=== PATIENT | female | born 1945 ===

== ENCOUNTER 2017-05-21 17:26 | Inpatient (IN) | payer MEDICARE, MEDICAID ==
[2017-05-22 13:53] VITALS: BMI 30.6
[2017-05-22] MEDS ORDERED: Albuterol HFA 90 mcg/actuation (8 g) IH PRN (17:29)
[2017-05-22] MEDS: Simethicone 80 mg Chewtab PO SCH (20:36)
[2017-05-22] MEDS: Divalproex 500 mg ER (ONCE DAILY formulation) PO SCH (20:44)
[2017-05-22] MEDS: Insulin Detemir 100 Units/ml Inj SC SCH (21:57)
[2017-05-22] MEDS: Insulin Lispro (humaLOG) 100 Units/ml Inj SC SCH (21:59)
[2017-05-23] MEDS: Simethicone 80 mg Chewtab PO SCH ×5 (00:55→21:53)
[2017-05-23] MEDS: Pantoprazole 40 mg EC Tab PO SCH (06:11)
[2017-05-23] MEDS: Insulin Lispro (humaLOG) 100 Units/ml Inj SC SCH ×4 (07:17→21:32)
[2017-05-23] MEDS: Divalproex 500 mg ER (ONCE DAILY formulation) PO SCH ×2 (08:36→21:30)
[2017-05-23] MEDS: Enoxaparin 40 mg Syringe SC SCH (08:39)
[2017-05-23 09:44] LABS: ALB/GLOB RATIO 1.3 (1.0-2.1); ALBUMIN 3.4 g/dL (3.5-5.0); ALT/SGPT 34 U/L (9-52); AST/SGOT 23 U/L (14-36); BLOOD UREA NITROGEN 19 mg/dl (7-17); CALCIUM 9.7 mg/dL (8.4-10.2); GFR AFRICAN-AMERICAN > 60; GFR NON-AFRICAN AMERICAN > 60
[2017-05-23 09:54] LABS: HEMOGLOBIN 12.4 g/dL (12.0-16.0); MEAN CELL VOLUME 88.6 fl (81.0-99.0); MEAN CORPUSCULAR HEMOGLOBIN 28.7 pg (27.0-31.0); MEAN CORPUSCULAR HGB CONC 32.4 g/dL (33.0-37.0); RBC 4.32 Mil/uL (3.80-5.20); RED CELL DISTRIBUTION WIDTH 13.3 % (11.5-14.5); WHITE BLOOD COUNT 3.2 K/uL (4.8-10.8)
[2017-05-23] MEDS: Multivitamin With Minerals Tab PO SCH (10:00)
--- NOTE | 2017-05-23 16:30 | CP.PCM.CON ---
History of Present Illness - History of Present Illness History of Present Illness: Dr Higuera PMR consultation on Estrellita Cordon, born 1945 who has been admitted to [facility] for acute inpatient rehabilitation following a right CVA with left hemiplegia. 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 Right hand dominant. Some left neglect. Review of Systems - Constitutional Constitutional: absent: Chills - EENT Ears: absent: Dizziness - Cardiovascular Cardiovascular: absent: Chest Pain - Respiratory Respiratory: absent: Cough - Gastrointestinal Gastrointestinal: Bloating, Constipation - Musculoskeletal Musculoskeletal: absent: Back Pain - Integumentary Integumentary: absent: Bleeding Lesions, Rash, Wounds - Neurological Neurological: absent: Abnormal Movements, Vertigo Past Patient History - Past Medical History & Family History Past Medical History?: Yes - Past Social History Smoking Status: Never Smoked Chewing Tobacco Use: No Alcohol: None Drugs: Denies Home Situation {Lives}: Other ([facility]) - CARDIAC Hx Cardiac Disorders: Yes Hx Hypercholesterolemia: Yes Hx Hypertension: Yes Hx Peripheral Vascular Disease: Yes - PULMONARY Hx Respiratory Disorders: Yes (SOB) Hx Pneumonia: Yes (3 YRS AGO) - NEUROLOGICAL Hx Neurological Disorder: Yes (PERIPHERAL NEUROPATHY) Hx Dizziness: Yes Other/Comment: UNSURE OF DIAGNOSIS/TREMORS - HEENT Hx HEENT Problems: No - RENAL Hx Chronic Kidney Disease: No - ENDOCRINE/METABOLIC Hx Endocrine Disorders: Yes Hx Diabetes Mellitus Type 1: Yes - HEMATOLOGICAL/ONCOLOGICAL Hx Blood Disorders: Yes Hx AIDS: No Hx Cancer: Yes (RT BREAST) Hx Human Immunodeficiency Virus (HIV): No - MUSCULOSKELETAL/RHEUMATOLOGICAL Hx Falls: Yes - GASTROINTESTINAL Hx Gastrointestinal Disorders: Yes Hx Gastritis: Yes - GENITOURINARY/GYNECOLOGICAL Hx Genitourinary Disorders: Yes Hx Reproductive Disorders: Yes (FIBROID) - PSYCHIATRIC Hx Substance Use: No - SURGICAL HISTORY Hx Surgeries: Yes Hx Angiogram: Yes Hx Breast Biopsy: Yes Hx Hysterectomy: Yes Hx Mastectomy: Yes (RT. BREAST CANCER) - ANESTHESIA Hx Anesthesia: Yes Hx Anesthesia Reactions: No Meds Allergies/Adverse Reactions: Allergies Allergy/AdvReac Type Severity Reaction Status Date / Time No Known Allergies Allergy Verified 09/06/15 10:53 - Medications Medications: Current Medications Acetaminophen (Tylenol 325mg Tab) 650 mg PO Q6 PRN PRN Reason: PAIN 4-10 Albuterol (Ventolin Hfa 90 Mcg/Actuation (8 G)) 1 puff IH Q4 PRN PRN Reason: Wheezing Amlodipine Besylate (Norvasc) 5 mg PO DAILY [facility] Last Admin: 05/23/17 08:39 Dose: 5 mg Aspirin (Aspirin Chewable) 81 mg PO DAILY [facility] Last Admin: 05/23/17 08:38 Dose: 81 mg Atorvastatin Calcium (Lipitor) 80 mg PO HS [facility] Last Admin: 05/22/17 21:53 Dose: 80 mg Clonidine HCl (Catapres) 0.2 mg PO DAILY [facility] Last Admin: 05/23/17 08:40 Dose: 0.2 mg Divalproex Sodium (Depakote Er(Once Daily)) 500 mg PO Q12 [facility] Last Admin: 05/23/17 08:36 Dose: 500 mg Donepezil HCl (Aricept) 5 mg PO HS [facility] Last Admin: 05/22/17 21:55 Dose: 5 mg Enoxaparin Sodium (Lovenox) 40 mg SC DAILY [facility] PRN Reason: Protocol Last Admin: 05/23/17 08:39 Dose: 40 mg Fluticasone Propionate (Flonase) 1 spr PRITESH DAILY [facility] Last Admin: 05/23/17 08:37 Dose: 1 spr Furosemide (Lasix) 20 mg PO DAILY [facility] Last Admin: 05/23/17 08:38 Dose: 20 mg Gabapentin (Neurontin) 200 mg PO Q6 [facility] Last Admin: 05/23/17 12:23 Dose: 200 mg Hydralazine HCl (Apresoline) 50 mg PO Q8 [facility] Last Admin: 05/23/17 13:12 Dose: 50 mg Insulin Detemir (Levemir) 10 units SC HS [facility] Last Admin: 05/22/17 21:57 Dose: 10 units Insulin Human Lispro (Humalog) 0 units SC [facility] PRN Reason: Protocol Last Admin: 05/23/17 12:24 Dose: 2 unit Losartan Potassium (Cozaar) 100 mg PO DAILY [facility] Last Admin: 05/23/17 08:39 Dose: 100 mg Metformin HCl (Glucophage) 1,000 mg PO BID [facility] Last Admin: 05/23/17 08:40 Dose: 1,000 mg Multivitamins/Minerals (Therapeutic-M Tab) 1 tab PO DAILY [facility] Last Admin: 05/23/17 10:00 Dose: 1 tab Pantoprazole Sodium (Protonix Ec Tab) 40 mg PO 0630 [facility] Last Admin: 05/23/17 06:11 Dose: 40 mg Senna/Docusate Sodium (Senokot S 50 Mg-8.6 Mg) 1 tab PO BID [facility] Simethicone (Mylicon Chew Tab) 80 mg PO HS [facility] Last Admin: 05/23/17 00:55 Dose: 80 mg Simethicone (Mylicon Chew Tab) 80 mg PO PC [facility] Last Admin: 05/23/17 12:23 Dose: 80 mg Sitagliptin Phosphate (Januvia) 50 mg PO BID [facility] Last Admin: 05/23/17 08:39 Dose: 50 mg Topiramate (Topamax) 50 mg PO Q12 [facility] Last Admin: 05/23/17 08:38 Dose: 50 mg Physical Exam - Constitutional Appears: Well, Non-toxic, No Acute Distress - Head Exam Head Exam: ATRAUMATIC, NORMAL INSPECTION, NORMOCEPHALIC - Eye Exam Eye Exam: EOMI - ENT Exam ENT Exam: Mucous Membranes Moist - Respiratory Exam Respiratory Exam: NORMAL BREATHING PATTERN. absent: Chest Wall Tenderness - Cardiovascular Exam Cardiovascular Exam: REGULAR RHYTHM - GI/Abdominal Exam GI & Abdominal Exam: Distended. absent: Firm - Extremities Exam Extremities exam: Negative for: calf tenderness, pedal edema - Neurological Exam Neurological exam: Alert, CN II-XII Intact, Oriented x3 - Psychiatric Exam Psychiatric exam: Normal Affect, Normal Mood - Skin Skin Exam: Warm Results - Vital Signs Recent Vital Signs: Last Vital Signs Temp 97.2 F L 05/23/17 08:06 Pulse 67 05/23/17 15:00 Resp 18 05/23/17 08:06 BP 146/56 L 05/23/17 15:00 Pulse Ox 100 05/23/17 08:06 - Labs Result Diagrams: 05/23/17 06:35 05/23/17 06:35 Labs: Laboratory Results - last 24 hr 05/22/17 05/23/17 05/23/17 21:11 06:15 06:35 WBC 3.2 L RBC 4.32 Hgb 12.4 Hct 38.3 MCV 88.6 MCH 28.7 MCHC 32.4 L RDW 13.3 Plt Count 196 Sodium Potassium Chloride Carbon Dioxide Anion Gap BUN Creatinine Est GFR ( Amer) Est GFR (Non-Af Amer) POC Glucose (mg/dL) 189 H 157 H Random Glucose Calcium Total Bilirubin AST ALT Alkaline Phosphatase Total Protein Albumin Globulin Albumin/Globulin Ratio 05/23/17 05/23/17 05/23/17 06:35 11:17 16:15 WBC RBC Hgb Hct MCV MCH MCHC RDW Plt Count Sodium 148 Potassium 4.7 Chloride 106 Carbon Dioxide 29 Anion Gap 18 BUN 19 H Creatinine 0.9 Est GFR ( Amer) > 60 Est GFR (Non-Af Amer) > 60 POC Glucose (mg/dL) 219 H 96 Random Glucose 145 H Calcium 9.7 Total Bilirubin 0.3 AST 23 ALT 34 Alkaline Phosphatase 48 Total Protein 6.1 L Albumin 3.4 L Globulin 2.7 Albumin/Globulin Ratio 1.3 Assessment & Plan - Assessment and Plan (Free Text) Assessment: PT/OT to continue to help increase functional independence Team conference for d/c planning Pain: controlled Vascular: no evidence of DVT GI: + constipation will monitor some left neglect. Left UE 4/5 left LE 3-/5 Patient is an excellent acute rehabilitation candidate and will have focused speech, PT, OT and recreational therapy to help facilitate a safe and appropriate d/c plan
--- NOTE | 2017-05-23 16:43 | PCM.OPOC ---
Physiatry Overall Plan of Care - Overall Plan of Care Estimated Length of Stay in Weeks: 3 Rehab Impairment: Mobility, Gait, Speech, Balance, Coordination Etiologic Diagnosis: Cerebrovascular Accident Rehab/Medical Prognosis: Fair - Anticipated Interventions Physical Therapy:: Yes Occupational Therapy:: Yes Speech Therapy:: Yes Recreational Therapy:: Yes - Therapy Goals Bed Mobility: Supervision Ambulation: Supervision Functional Positional Changes:: Supervision - Discharge Plan Discharge Destination: Home
[2017-05-23] MEDS: Docusate-Senna 50 mg-8.6 mg Tab PO SCH (16:49)
[2017-05-23] MEDS: Insulin Detemir 100 Units/ml Inj SC SCH (21:33)
[2017-05-24] MEDS: Pantoprazole 40 mg EC Tab PO SCH (06:10)
[2017-05-24 06:28] LABS: EOS # 0.1 K/uL (0.0-0.7); EOS % 2.4 % (0.0-4.0); HEMOGLOBIN 12.8 g/dL (12.0-16.0); LYMPH # 1.6 K/uL (1.0-4.3); LYMPH % 38.9 % (20.0-40.0); MEAN CELL VOLUME 88.5 fl (81.0-99.0); MEAN CORPUSCULAR HEMOGLOBIN 28.3 pg (27.0-31.0); MEAN PLATELET VOLUME 9.7 fl (7.2-11.7); MONO # 0.4 K/uL (0.0-0.8); MONO % 10.8 % (0.0-10.0); NEUT # 1.9 K/uL (1.8-7.0); NEUT % 46.9 % (50.0-75.0); NRBC % 0.1 % (0.0-0.0); RBC 4.5 Mil/uL (3.80-5.20); RED CELL DISTRIBUTION WIDTH 13.2 % (11.5-14.5)
[2017-05-24 06:39] LABS: ALB/GLOB RATIO 1.3 (1.0-2.1); ALBUMIN 3.6 g/dL (3.5-5.0); ALT/SGPT 36 U/L (9-52); AST/SGOT 24 U/L (14-36); BLOOD UREA NITROGEN 27 mg/dl (7-17); CALCIUM 9.6 mg/dL (8.4-10.2); GFR AFRICAN-AMERICAN > 60; GFR NON-AFRICAN AMERICAN > 60; HDL CHOLESTEROL 37 MG/DL (30-70)
[2017-05-24 06:49] LABS: LDL CHOLESTEROL 72 mg/dL (0-129)
--- NOTE | 2017-05-24 07:20 | HP ---
HISTORY OF PRESENT ILLNESS: This patient is a 71-year-old female with history of hypertension, diabetes, status post right mastectomy for CA of the breast, was admitted to [facility] because of the patient had developed acute stroke, so the patient will now go to [facility] for rehabilitation. In fact, the patient was complaining of drooling of the left side of the face and also dizziness and altered mental status. On evaluation, we have found the patient has acute CVA with weakness of right side of the face and drooling and also the patient complained of some weakness to the right side of the body. ALLERGY: THE PATIENT HAS NO KNOWN ALLERGY. PAST MEDICAL HISTORY: As I mentioned, history of hypertension, diabetes, and breast CA with mastectomy and also the patient has a history of altered mental status and possible seizure. FAMILY HISTORY: No hereditary disease. 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 REVIEW OF SYSTEMS: RESPIRATORY: No shortness of breath. CARDIOVASCULAR: No chest pain and no palpitation. GI: The patient complaining of constipation. : No dysuria. NEUROLOGIC: The patient feels weak numbness to the right side of the face. PSYCHIATRIC: The patient is somewhat forgetful at time and disoriented at time. PHYSICAL EXAMINATION: GENERAL: The patient is alert and awake and oriented today. VITAL SIGNS: Blood pressure 146/86, pulse 67, and respirations 18. HEENT: Head is normocephalic. There is some weakness of the right side of the face and drooling to the right side of the lip. NECK: Supple. No JVD. CHEST: Revealed a mass at the left breast there is a right mastectomy. Mass is 4 cm in diameter and attached to the muscle. LUNGS: Clear. HEART: Regular rate and rhythm, positive murmur. ABDOMEN: Soft, obese. Positive bowel sounds, nontender. EXTREMITIES: There is no edema. NEUROLOGIC: The patient is now alert and awake and oriented. There is some weakness of the right side of the face with some deviation of the lip to the left slightly. Upper extremity strength is 5/5 and the right lower extremity is 3/4. LABORATORY DATA: Lab test that was done has shown that today sodium of 148, potassium of 4.7, chloride of 106, bicarb of 29, BUN of 19, creatinine of 0.9, glucose of 145, AST of 23, ALT of 34, alkaline phosphatase of 48, total protein of 6.4, and albumin of 3.4. WBC is 3.2, hemoglobin is 12.4, hematocrit is 38.3, and platelets 196. IMPRESSION: 1. Cerebrovascular accident with right-sided weakness, hypertension, diabetes, possible seizure, and dementia. The patient will have consult with Dr. Higuera, Physiatry. 2. Breast mass. Rule out cancer of the breast. PLAN: We are going to get ultrasound of breast and will proceed with biopsy of the breast mass. The case was discussed with the family. Mehrdad Aleman MD
[2017-05-24] MEDS: Insulin Lispro (humaLOG) 100 Units/ml Inj SC SCH ×4 (07:27→21:46)
[2017-05-24] MEDS: Multivitamin With Minerals Tab PO SCH (09:09)
[2017-05-24] MEDS: Divalproex 500 mg ER (ONCE DAILY formulation) PO SCH ×2 (09:11→21:46)
[2017-05-24] MEDS: Docusate-Senna 50 mg-8.6 mg Tab PO SCH ×2 (09:11→17:15)
[2017-05-24] MEDS: Enoxaparin 40 mg Syringe SC SCH (09:13)
[2017-05-24] MEDS: Simethicone 80 mg Chewtab PO SCH ×4 (09:13→21:50)
--- NOTE | 2017-05-24 17:15 | US ---
PROCEDURE: MAMMO DIAGNOSTIC LT INCLUD CAD HISTORY: Palpable abnormality left breast. Past history of right breast cancer status post mastectomy performed in 2002 at an outside institution. TECHNIQUE: Digital mammography was performed in medial oblique and craniocaudal projections with. Detection also utilized in the evaluation. Technologist was unable to capture the left breast in medial lateral projection as the patient is wheelchair-bound at this time. Further, ultrasonography of all 4 quadrants of the left breast was performed including at the area of the palpable abnormality this in this patient as well as retroareolar axillary tail segments. COMPARISON: None available. FINDINGS: MAMMOGRAM: Fibroglandular parenchyma appears somewhat heterogeneously dense. The posterior portions of the left breast as well as axillary tail are poorly captured this examination due to limiting of technique by patient being wheelchair bound. There is a small metallic density seen overlying the medial left breast as a component of a bandage. No definitive dominant masses appreciated or microcalcification cluster. There is no architectural distortion or change appreciate the left breast. The skin, nipple and visualized axilla appear unremarkable. Patient's pain signature is reportedly at the 12-1 o'clock radius 8-10 cm from the nipple with no mammographic pathology grossly evident here. No significant lymphadenopathy. ULTRASOUND: No suspicious masses appreciated throughout all radiuses including retroareolar axillary tail components. IMPRESSION: Suboptimal mammography as the patient is unable to stand for standard mammographic images. There is no radiographic or sonographic evidence suggest malignancy in the images submitted as discussed above. Further clinical correlation is recommended. BIRADS 1 Negative Recommendation: Continue annual screening mammography, as per ACR guidelines. [facility] has passed a law, effective June 08, 2013. Please be advised that we are required by this law to put this notification in all mammography result reports. This [place] Breast Density Law requires all patients and healthcare providers, regardless of breast density, to receive the information typed below: Your mammogram may show dense breast tissue as determined by the Breast Imaging Reporting and Data System established by the [employer]. Dense breast tissue is very common and is not abnormal. However, in some cases, dense breast tissue can make it harder to find cancer on a mammogram and may also be associated with a risk factor for breast cancer. Discuss this and other risks for breast cancer that pertain to your personal medical history. A report of your results was sent to your health care provider. You may also find more information about breast density at the website of the [employer], www.acr.org.
[2017-05-24] MEDS: Insulin Detemir 100 Units/ml Inj SC SCH (21:49)
[2017-05-25] MEDS: Pantoprazole 40 mg EC Tab PO SCH (06:02)
[2017-05-25] MEDS: Levothyroxine 88 MCG TAB PO SCH (06:02)
[2017-05-25] MEDS: Insulin Lispro (humaLOG) 100 Units/ml Inj SC SCH ×4 (06:58→22:07)
[2017-05-25] MEDS: Simethicone 80 mg Chewtab PO SCH ×4 (08:51→22:49)
[2017-05-25] MEDS: Divalproex 500 mg ER (ONCE DAILY formulation) PO SCH ×2 (08:52→22:49)
[2017-05-25] MEDS: Multivitamin With Minerals Tab PO SCH (08:55)
[2017-05-25] MEDS: Enoxaparin 40 mg Syringe SC SCH (08:56)
[2017-05-25] MEDS: Docusate-Senna 50 mg-8.6 mg Tab PO SCH ×2 (08:57→17:18)
--- NOTE | 2017-05-25 13:14 | PSY.TMCNF ---
Nursing - Vital Signs Vital Signs (Last 8 hours): Vital Signs 05/25/17 05/25/17 05/25/17 06:02 08:44 08:54 Temperature 98.1 F Pulse Rate 62 61 Respiratory 19 Rate Blood Pressure 166/68 H 147/54 L 147/54 L O2 Sat by Pulse 97 Oximetry 05/25/17 05/25/17 08:57 09:00 Temperature 98.1 F Pulse Rate 61 Respiratory 19 Rate Blood Pressure 147/54 L 147/54 L O2 Sat by Pulse Oximetry Pain: 0 - Precautions: Precautions: Fall Prevention, Cardiac/Pulmonary - Medications/Other Issues Comment: Mammogram with US of left breast done 05/25/17, negative. (+) New Loop reocorder, insertion site covered with dry dressing d/i. - Consults Comment: Dr. Higuera - Skin Incision Site: Right upper chest Dressing Status: Clean, Dry, Intact Incision: Healing Well, No Odor Incision Line Treatment: loop recorder insertion site d/i - Toileting Toileting: Dependent - Bladder Management Bladder Pattern: Normal Voiding Method: Toilet, Bedside Commode, Bedpan Bladder Management: Maximal Assistance Frequency of Accidents: x2 - Bowel Management Bowel Pattern: Normal Bowel Management: Maximal Assistance Frequency of Accidents: x1 - Transfers Transfers: Dependent - ADL's ADL's: Dependent - Patient/Family Teaching Comments: Care post CVA and safety precutions - Goals/Time Frame Comments: Per multidiciplinary care plan and goals - Provider Provider: Radha MENDOZAN RN CRRN Physical Therapy - Transfers Sit to Stand: Verbal Cues, Maximum Assistance - Ambulation Level of Assistance: Maximum Assistance Distance (ft.): 10 - Stair Negotiation Stairs: Level of Assistance: Not Tested - Standing Balance Static Stand: Moderate Assistance Dynamic Stand: Maximal Assistance - Pain Pain (assessed during therapy session): 0 - Insight/Carryover Insight/Carryover: Fair - Patient/Family Education Comment: Patient has been educated regarding plan of care while in rehabilitation. She has also been educated regarding safety, use of call bowling. - Assessment/Plan Assessment: 71 yo female admitted to [facility] acute rehab unit s/p R CVA. Pt presents w/ L knee pain, restlessness, L inattention, L sided weakness, and impaired ROM, balance, sensation, activity tolerance, safety awareness and fxnl mob. Skilled PT recommended to address deficits. - Goals Timeframe: 8 days Goals: Functional Transfers (to/from wheelchair, bed, toilet, and shower) to Rick. Upperbody Dressing with Rick. Lowerbody Dressing with Rick. Self- feeding with Supervision. Grooming with Supervision. Bathing with Min/ModA. Improve safety awareness and body awareness - Provider Therapist: Bev House PT, DPT License Number: [id number] Occupational Therapy - Arousal/Attention/Orientation Patient Orientation: Person, Place - ADL/IADL Self Feeding: Contact Guard Grooming: Contact Guard Bathing-Upper Extremity: Moderate Assistance Bathing-Lower Extremity: Moderate Assistance Dressing-Upper Extremity: Moderate Assistance Dressing-Lower Extremity: Moderate Assistance Comment: Patient is noted to have Left inattention due to which she required max VCs for sequencing and safety. Patient is also noted to show decreased safety awareness and impulsivity at this time. - Sitting Balance Static Sitting: Supervision Dynamic Sitting: Requires supervision, Contact Guard Assist - Transfers Wheelchair to Bed Transfers: Minimal Assistance, Moderate Assistance Toilet Transfers: Moderate Assistance Tub Transfers: Not Applicable Comment: Tub transfer was not performed during today's evaluation. - Wheelchair Management Level of Assistance: Moderate Assistance, Maximum Assistance - Upper Extremity Status Right Upper Extremity Comment: ROM: WFLs. Strength: 4/5 Left Upper Extremity Comment: ROM: WFL. Strength: 3+/5. Moderate to maximum Left side and body inattention for which VCs are required with all tasks at this time. - Pain Pain (assessed during therapy session): 0 - Insight/Carryover Insight/Carryover: Fair - Patient/Family Education Comment: Patient has been educated regarding plan of care while in rehabilitation. She has also been educated regarding safety, use of call bowling. - Assessment/Plan Assessment: 71 yo female admitted to [facility] acute rehab unit s/p R CVA. Pt presents w/ L knee pain, restlessness, L inattention, L sided weakness, and impaired ROM, balance, sensation, activity tolerance, safety awareness and fxnl mob. Skilled PT recommended to address deficits. - Goals Timeframe: 8 days Goals: Functional Transfers (to/from wheelchair, bed, toilet, and shower) to Rick. Upperbody Dressing with Rick. Lowerbody Dressing with Rick. Self- feeding with Supervision. Grooming with Supervision. Bathing with Min/ModA. Improve safety awareness and body awareness - Provider Therapist: Emmett Cleary OTR/Saul License Number: [id number] Speech Therapy - Consult Information Patient on Program: Yes Medical Diagnosis: CVA Treatment Diagnosis: mild suspected pharyngeal dysphagia. moderate cognitive- linguistic deficits in STM and thought organization - Assessment Memory Impairment: Moderate Dysphagia/Swallowing Impairment: Mild - Plan Assessment: 71 yo female admitted to [facility] acute rehab unit s/p R CVA. Pt presents w/ L knee pain, restlessness, L inattention, L sided weakness, and impaired ROM, balance, sensation, activity tolerance, safety awareness and fxnl mob. Skilled PT recommended to address deficits. - Provider Therapist: Bridget Burnette License Number: [id number] Recreational Therapy - Assessment Assessment/Plan: 71 yo female admitted to [facility] acute rehab unit s/p R CVA. Pt presents w/ L knee pain, restlessness, L inattention, L sided weakness, and impaired ROM, balance, sensation, activity tolerance, safety awareness and fxnl mob. Skilled PT recommended to address deficits. Nutrition - Current Diet Current Diet/ Supplement/ Feedings: Moderate consistent CHO 2 gram Na low fat/ low cholesterol - Appetite Percent Meal Consumed: 75-100% - Comments Comments: Care post CVA and safety precutions - Assessment/Goals/Time Frame Assessment/Goals/Time Frame: Mammogram with US of left breast done 05/25/17, negative. (+) New Loop reocorder, insertion site covered with dry dressing d/i. - Provider Provider: Sheree Tellez RD Rehabilitation Plan - Discharge Plan Estimated Date of Discharge: 06/10/17 Discharge to: Subacute
--- NOTE | 2017-05-25 14:05 | CP.PCM.PN ---
Subjective - Date & Time of Evaluation Date of Evaluation: 05/25/17 Time of Evaluation: 14:04 - Subjective Subjective: Patient seen with the aid of an farm labor contractor, which did not help much she is very indifferent with all aspects of her care denies pain, but is weak in the leg no sob/fever continue current care Objective - Vital Signs/Intake and Output Vital Signs (last 24 hours): Temp Pulse Resp BP Pulse Ox 98.1 F 62 19 125/57 L 97 05/25/17 09:00 05/25/17 13:29 05/25/17 09:00 05/25/17 13:29 05/25/17 08:44 - Medications Medications: Current Medications Acetaminophen (Tylenol 325mg Tab) 650 mg PO Q6 PRN PRN Reason: PAIN 4-10 Albuterol (Ventolin Hfa 90 Mcg/Actuation (8 G)) 1 puff IH Q4 PRN PRN Reason: Wheezing Amlodipine Besylate (Norvasc) 5 mg PO DAILY [facility] Last Admin: 05/25/17 08:54 Dose: 5 mg Aspirin (Aspirin Chewable) 81 mg PO DAILY [facility] Last Admin: 05/25/17 08:55 Dose: 81 mg Atorvastatin Calcium (Lipitor) 80 mg PO HS [facility] Last Admin: 05/24/17 21:49 Dose: 80 mg Clonidine HCl (Catapres) 0.2 mg PO HS [facility] Divalproex Sodium (Depakote Er(Once Daily)) 500 mg PO Q12 [facility] Last Admin: 05/25/17 08:52 Dose: 500 mg Donepezil HCl (Aricept) 5 mg PO HS [facility] Last Admin: 05/24/17 21:49 Dose: 5 mg Enoxaparin Sodium (Lovenox) 40 mg SC DAILY [facility] PRN Reason: Protocol Last Admin: 05/25/17 08:56 Dose: 40 mg Fluticasone Propionate (Flonase) 1 spr PRITESH DAILY [facility] Last Admin: 05/25/17 08:58 Dose: 1 spr Furosemide (Lasix) 20 mg PO DAILY [facility] Last Admin: 05/25/17 08:57 Dose: 20 mg Gabapentin (Neurontin) 200 mg PO Q6 [facility] Last Admin: 05/25/17 12:16 Dose: 200 mg Hydralazine HCl (Apresoline) 50 mg PO Q8 [facility] Last Admin: 05/25/17 13:29 Dose: 50 mg Insulin Detemir (Levemir) 10 units SC [facility] Last Admin: 05/24/17 21:49 Dose: 10 units Insulin Human Lispro (Humalog) 0 units SC [facility] PRN Reason: Protocol Last Admin: 05/25/17 12:15 Dose: 2 unit Levothyroxine Sodium (Synthroid) 88 mcg PO DAILY@0630 [facility] Last Admin: 05/25/17 06:02 Dose: 88 mcg Losartan Potassium (Cozaar) 100 mg PO DAILY [facility] Last Admin: 05/25/17 08:54 Dose: 100 mg Metformin HCl (Glucophage) 1,000 mg PO BID [facility] Last Admin: 05/25/17 08:53 Dose: 1,000 mg Modafinil (Provigil) 100 mg PO DAILY [facility] Multivitamins/Minerals (Therapeutic-M Tab) 1 tab PO DAILY [facility] Last Admin: 05/25/17 08:55 Dose: 1 tab Pantoprazole Sodium (Protonix Ec Tab) 40 mg PO 0630 [facility] Last Admin: 05/25/17 06:02 Dose: 40 mg Senna/Docusate Sodium (Senokot S 50 Mg-8.6 Mg) 1 tab PO BID [facility] Last Admin: 05/25/17 08:57 Dose: 1 tab Simethicone (Mylicon Chew Tab) 80 mg PO HS [facility] Last Admin: 05/24/17 21:50 Dose: 80 mg Simethicone (Mylicon Chew Tab) 80 mg PO PC [facility] Last Admin: 05/25/17 12:17 Dose: 80 mg Sitagliptin Phosphate (Januvia) 50 mg PO BID [facility] Last Admin: 05/25/17 08:56 Dose: 50 mg Topiramate (Topamax) 50 mg PO Q12 [facility] Last Admin: 05/25/17 08:55 Dose: 50 mg - Labs Labs: 05/24/17 05:30 05/24/17 05:30
[2017-05-25] MEDS: Insulin Detemir 100 Units/ml Inj SC SCH (22:07)
[2017-05-26] MEDS: Levothyroxine 88 MCG TAB PO SCH (05:37)
[2017-05-26] MEDS: Pantoprazole 40 mg EC Tab PO SCH (05:37)
[2017-05-26] MEDS: Insulin Lispro (humaLOG) 100 Units/ml Inj SC SCH ×4 (06:33→22:00)
--- NOTE | 2017-05-26 08:33 | PN ---
DATE: SUBJECTIVE: The patient was seen and examined this morning. The patient is alert and awake, but worsening of weakness of the lower extremities. Denies any chest pain, shortness of breath or palpitation. PHYSICAL EXAMINATION: VITAL SIGNS: Blood pressure of 142/63, pulse rate 60, respirations 18, and temperature 98.4. HEENT: The face has had some drooling on the right side of the face that is subsiding. NECK: Supple. No JVD. LUNGS: Clear. HEART: Regular rate and rhythm and positive murmur. ABDOMEN: Soft and nontender. No palpable mass. EXTREMITIES: There is no edema. NEUROLOGIC: The patient had a mild unsteady gait with tendency to fall and there is a slight weakness in the right hand. Blanks at So today, patient has physical therapy started and the patient was somewhat unsteady and difficult to follow direction, but the physical therapy , who was done and we appreciate it and agree the patient. ADDENDUM: The patient to be a breast mass and mammogram of the left breast was done since the patient has right mastectomy, but there is no radiographic or sonographic evidence suggesting malignancy in the . This suspicious mass appreciated throughout component. Also, the patient had mammogram, which showed the metallic density seen overlying the medial left breast, but there is no evidence of mass to the breast. PLAN: We are going to continue the physical therapy and occupational therapy. Mehrdad Aleman MD
[2017-05-26] MEDS: Multivitamin With Minerals Tab PO SCH (09:23)
[2017-05-26] MEDS: Divalproex 500 mg ER (ONCE DAILY formulation) PO SCH ×2 (09:23→21:40)
[2017-05-26] MEDS: Simethicone 80 mg Chewtab PO SCH ×4 (09:23→21:42)
[2017-05-26] MEDS: Enoxaparin 40 mg Syringe SC SCH (09:25)
[2017-05-26] MEDS: Docusate-Senna 50 mg-8.6 mg Tab PO SCH ×2 (09:39→17:03)
[2017-05-26] MEDS: Insulin Detemir 100 Units/ml Inj SC SCH (22:20)
[2017-05-27] MEDS: Pantoprazole 40 mg EC Tab PO SCH (06:27)
[2017-05-27] MEDS: Levothyroxine 88 MCG TAB PO SCH (06:27)
[2017-05-27] MEDS: Insulin Lispro (humaLOG) 100 Units/ml Inj SC SCH ×4 (07:30→21:39)
[2017-05-27 07:31] LABS: BLOOD UREA NITROGEN 18 mg/dl (7-17); CALCIUM 9.9 mg/dL (8.4-10.2); GFR AFRICAN-AMERICAN > 60; GFR NON-AFRICAN AMERICAN > 60
[2017-05-27 07:37] LABS: MEAN CELL VOLUME 88.3 fl (81.0-99.0); MEAN CORPUSCULAR HEMOGLOBIN 28.6 pg (27.0-31.0); MEAN CORPUSCULAR HGB CONC 32.4 g/dL (33.0-37.0); RBC 4.54 Mil/uL (3.80-5.20); RED CELL DISTRIBUTION WIDTH 13.2 % (11.5-14.5)
[2017-05-27] MEDS: Enoxaparin 40 mg Syringe SC SCH (08:15)
[2017-05-27] MEDS: Multivitamin With Minerals Tab PO SCH (08:16)
[2017-05-27] MEDS: Divalproex 500 mg ER (ONCE DAILY formulation) PO SCH ×2 (08:17→21:33)
[2017-05-27] MEDS: Docusate-Senna 50 mg-8.6 mg Tab PO SCH ×2 (08:17→17:04)
[2017-05-27] MEDS: Simethicone 80 mg Chewtab PO SCH ×4 (08:21→21:34)
--- NOTE | 2017-05-27 08:59 | PN ---
DATE: SUBJECTIVE: This patient is at acute rehab at [facility], [place]. Today, the patient was seen and evaluated. The patient was much more alert today and following command, and feels happy about the treatment and attention she has on the floor and admitted having ____ to physical therapy yesterday and today. The patient denies any chest pain. No palpitation. No headache. PHYSICAL EXAMINATION: VITAL SIGNS: The patient has blood pressure of 126/98, at 1443 hours the blood pressure was 164/65, pulse 73. NECK: Supple. No JVD. FACE: There is a slightly drooling to the right side of the face. LUNGS: Clear. HEART: Regular rate and rhythm. ABDOMEN: Soft and nontender. No palpable mass. EXTREMITIES: There is no edema. NEUROLOGIC: There is weakness in the right lower extremity, still there is a slightly drooling to the right side of the face. The road advisor of the hands 5/5 on the left side and 4/5 on the right. PLAN: Continue physical therapy. The case was discussed and reviewed with the piano case maker on the floor and the plan is to continue acute physical therapy and occupational therapy, and also patient may continue on subacute after acute physical therapy. Mehrdad Aleman MD
[2017-05-27] MEDS: Insulin Detemir 100 Units/ml Inj SC SCH (22:21)
[2017-05-28] MEDS: Levothyroxine 88 MCG TAB PO SCH (06:05)
[2017-05-28] MEDS: Pantoprazole 40 mg EC Tab PO SCH (06:05)
[2017-05-28] MEDS: Insulin Lispro (humaLOG) 100 Units/ml Inj SC SCH ×4 (06:36→21:52)
--- NOTE | 2017-05-28 07:34 | PN ---
DATE: SUBJECTIVE: Today, the patient was seen early this morning on the chair, and the patient denies any joint pain and denies any shortness of breath. The patient is happy with the and therapies in the rehab; however the patient admits having some difficulty in standing. PHYSICAL EXAMINATION: VITAL SIGNS: The patient has blood pressure 144/69, pulse rate 60, respirations 19, temperature 97.4. HEENT: Head, the patient has slight drooling of the face that is resolving progressively. NECK: Supple. LUNGS: Clear. CHEST: He has right mastectomy. The left breast has no palpable mass at this point but the patient has a loop recorder in the sternum. ABDOMEN: Soft. Nontender. No palpable mass. Positive bowel sound. EXTREMITIES: There is no edema. NEUROLOGIC: There is an unsteady gait with difficulty of standing. LABORATORY DATA: Labs today showed WBC 4, hemoglobin 13, hematocrit 40.1, and platelets 194. Chemistry showed that the sodium is 149, potassium 4.3, chloride 105, bicarb is 30, BUN is 18, creatinine 0.9, and glucose 114. PLAN: So, the plan is to continue physical therapy and continue occupational therapy. Continue current medications. Mehrdad Aleman MD
[2017-05-28] MEDS: Divalproex 500 mg ER (ONCE DAILY formulation) PO SCH ×2 (08:25→21:40)
[2017-05-28] MEDS: Enoxaparin 40 mg Syringe SC SCH (08:27)
[2017-05-28] MEDS: Simethicone 80 mg Chewtab PO SCH ×4 (08:28→21:51)
[2017-05-28] MEDS: Docusate-Senna 50 mg-8.6 mg Tab PO SCH ×2 (08:30→16:20)
[2017-05-28] MEDS: Multivitamin With Minerals Tab PO SCH (08:30)
--- NOTE | 2017-05-28 17:07 | CP.PCM.PN ---
Subjective - Date & Time of Evaluation Date of Evaluation: 05/28/17 Time of Evaluation: 17:07 - Subjective Subjective: patient seen after therapy participatory today ambulated 60' in therapy no pain continue current care Objective - Vital Signs/Intake and Output Vital Signs (last 24 hours): Temp Pulse Resp BP Pulse Ox 97.3 F L 64 18 173/51 H 100 05/28/17 07:35 05/28/17 13:15 05/28/17 07:35 05/28/17 13:15 05/28/17 07:35 - Medications Medications: Current Medications Acetaminophen (Tylenol 325mg Tab) 650 mg PO Q6 PRN PRN Reason: PAIN 4-10 Albuterol (Ventolin Hfa 90 Mcg/Actuation (8 G)) 1 puff IH Q4 PRN PRN Reason: Wheezing Amlodipine Besylate (Norvasc) 5 mg PO DAILY [facility] Last Admin: 05/28/17 08:28 Dose: 5 mg Aspirin (Aspirin Chewable) 81 mg PO DAILY [facility] Last Admin: 05/28/17 08:21 Dose: 81 mg Atorvastatin Calcium (Lipitor) 80 mg PO HS [facility] Last Admin: 05/27/17 21:33 Dose: 80 mg Clonidine HCl (Catapres) 0.2 mg PO HS [facility] Last Admin: 05/27/17 21:34 Dose: 0.2 mg Divalproex Sodium (Depakote Er(Once Daily)) 500 mg PO Q12 [facility] Last Admin: 05/28/17 08:25 Dose: 500 mg Donepezil HCl (Aricept) 5 mg PO HS [facility] Last Admin: 05/27/17 21:33 Dose: 5 mg Enoxaparin Sodium (Lovenox) 40 mg SC DAILY [facility] PRN Reason: Protocol Fluticasone Propionate (Flonase) 1 spr PRITESH DAILY [facility] Last Admin: 05/28/17 08:26 Dose: 1 spr Furosemide (Lasix) 20 mg PO DAILY [facility] Last Admin: 05/28/17 08:27 Dose: 20 mg Gabapentin (Neurontin) 200 mg PO Q6 [facility] Last Admin: 05/28/17 17:00 Dose: 200 mg Hydralazine HCl (Apresoline) 50 mg PO Q8 [facility] Last Admin: 05/28/17 13:15 Dose: 50 mg Insulin Detemir (Levemir) 10 units SC HS [facility] Last Admin: 05/27/17 22:21 Dose: 10 units Insulin Human Lispro (Humalog) 0 units SC [facility] PRN Reason: Protocol Last Admin: 05/28/17 16:19 Dose: Not Given Levothyroxine Sodium (Synthroid) 88 mcg PO DAILY@0630 [facility] Last Admin: 05/28/17 06:05 Dose: 88 mcg Losartan Potassium (Cozaar) 100 mg PO DAILY [facility] Last Admin: 05/28/17 08:24 Dose: Not Given Metformin HCl (Glucophage) 1,000 mg PO BID [facility] Last Admin: 05/28/17 16:18 Dose: 1,000 mg Modafinil (Provigil) 100 mg PO DAILY [facility] Last Admin: 05/28/17 08:30 Dose: 100 mg Multivitamins/Minerals (Therapeutic-M Tab) 1 tab PO DAILY [facility] Last Admin: 05/28/17 08:30 Dose: 1 tab Pantoprazole Sodium (Protonix Ec Tab) 40 mg PO 0630 [facility] Last Admin: 05/28/17 06:05 Dose: 40 mg Senna/Docusate Sodium (Senokot S 50 Mg-8.6 Mg) 1 tab PO BID [facility] Last Admin: 05/28/17 16:20 Dose: Not Given Simethicone (Mylicon Chew Tab) 80 mg PO HS [facility] Last Admin: 05/27/17 21:34 Dose: 80 mg Simethicone (Mylicon Chew Tab) 80 mg PO PC [facility] Last Admin: 05/28/17 17:01 Dose: 80 mg Sitagliptin Phosphate (Januvia) 50 mg PO BID [facility] Last Admin: 05/28/17 16:18 Dose: 50 mg Topiramate (Topamax) 50 mg PO Q12 [facility] Last Admin: 05/28/17 08:31 Dose: 50 mg - Labs Labs: 05/27/17 06:05 05/27/17 06:05
[2017-05-28] MEDS: Insulin Detemir 100 Units/ml Inj SC SCH (22:48)
[2017-05-29] MEDS: Levothyroxine 88 MCG TAB PO SCH (06:09)
[2017-05-29] MEDS: Pantoprazole 40 mg EC Tab PO SCH (06:09)
[2017-05-29] MEDS: Insulin Lispro (humaLOG) 100 Units/ml Inj SC SCH ×4 (06:58→21:33)
[2017-05-29] MEDS: Enoxaparin 40 mg Syringe SC SCH (09:01)
[2017-05-29] MEDS: Simethicone 80 mg Chewtab PO SCH ×4 (09:06→21:25)
[2017-05-29] MEDS: Multivitamin With Minerals Tab PO SCH (09:07)
[2017-05-29] MEDS: Docusate-Senna 50 mg-8.6 mg Tab PO SCH ×2 (09:07→16:52)
[2017-05-29] MEDS: Divalproex 500 mg ER (ONCE DAILY formulation) PO SCH ×2 (09:11→21:34)
[2017-05-29] MEDS: Insulin Detemir 100 Units/ml Inj SC SCH (21:26)
[2017-05-30] MEDS: Levothyroxine 88 MCG TAB PO SCH (06:25)
[2017-05-30] MEDS: Pantoprazole 40 mg EC Tab PO SCH (06:25)
[2017-05-30] MEDS: Insulin Lispro (humaLOG) 100 Units/ml Inj SC SCH ×4 (06:30→21:42)
[2017-05-30 08:21] LABS: HEMOGLOBIN 12.4 g/dL (12.0-16.0); MEAN CELL VOLUME 87.1 fl (81.0-99.0); MEAN CORPUSCULAR HEMOGLOBIN 28.8 pg (27.0-31.0); MEAN CORPUSCULAR HGB CONC 33.1 g/dL (33.0-37.0); RBC 4.31 Mil/uL (3.80-5.20); RED CELL DISTRIBUTION WIDTH 13.1 % (11.5-14.5); WHITE BLOOD COUNT 3.5 K/uL (4.8-10.8)
[2017-05-30 08:33] LABS: BLOOD UREA NITROGEN 16 mg/dl (7-17); CALCIUM 9.6 mg/dL (8.4-10.2); GFR AFRICAN-AMERICAN > 60; GFR NON-AFRICAN AMERICAN > 60
[2017-05-30] MEDS: Enoxaparin 40 mg Syringe SC SCH (08:44)
[2017-05-30] MEDS: Divalproex 500 mg ER (ONCE DAILY formulation) PO SCH ×2 (08:44→20:34)
[2017-05-30] MEDS: Simethicone 80 mg Chewtab PO SCH ×4 (08:44→21:38)
[2017-05-30] MEDS: Multivitamin With Minerals Tab PO SCH (08:45)
[2017-05-30] MEDS: Docusate-Senna 50 mg-8.6 mg Tab PO SCH ×2 (08:51→17:15)
[2017-05-30] MEDS: Insulin Detemir 100 Units/ml Inj SC SCH (21:37)
[2017-05-31] MEDS: Levothyroxine 88 MCG TAB PO SCH (05:37)
[2017-05-31] MEDS: Pantoprazole 40 mg EC Tab PO SCH (05:37)
[2017-05-31] MEDS: Insulin Lispro (humaLOG) 100 Units/ml Inj SC SCH ×4 (06:35→23:24)
[2017-05-31 07:36] LABS: ALB/GLOB RATIO 1.2 (1.0-2.1); ALBUMIN 3.2 g/dL (3.5-5.0); ALT/SGPT 28 U/L (9-52); AST/SGOT 25 U/L (14-36); BLOOD UREA NITROGEN 16 mg/dl (7-17); CALCIUM 9.2 mg/dL (8.4-10.2); GFR AFRICAN-AMERICAN > 60; GFR NON-AFRICAN AMERICAN > 60
[2017-05-31 07:54] LABS: EOS # 0.1 K/uL (0.0-0.7); EOS % 3.1 % (0.0-4.0); HEMOGLOBIN 11.8 g/dL (12.0-16.0); LYMPH # 1.5 K/uL (1.0-4.3); LYMPH % 39.1 % (20.0-40.0); MEAN CELL VOLUME 89.1 fl (81.0-99.0); MEAN CORPUSCULAR HEMOGLOBIN 28.2 pg (27.0-31.0); MEAN CORPUSCULAR HGB CONC 31.6 g/dL (33.0-37.0); MEAN PLATELET VOLUME 9.9 fl (7.2-11.7); MONO # 0.4 K/uL (0.0-0.8); MONO % 11.2 % (0.0-10.0); NEUT # 1.8 K/uL (1.8-7.0); NEUT % 45.6 % (50.0-75.0); RBC 4.19 Mil/uL (3.80-5.20); RED CELL DISTRIBUTION WIDTH 13.3 % (11.5-14.5); WHITE BLOOD COUNT 3.9 K/uL (4.8-10.8)
[2017-05-31] MEDS: Divalproex 500 mg ER (ONCE DAILY formulation) PO SCH ×2 (08:48→20:42)
[2017-05-31] MEDS: Enoxaparin 40 mg Syringe SC SCH (08:48)
[2017-05-31] MEDS: Simethicone 80 mg Chewtab PO SCH ×4 (08:51→21:20)
[2017-05-31] MEDS: Docusate-Senna 50 mg-8.6 mg Tab PO SCH ×2 (08:53→16:51)
[2017-05-31] MEDS: Multivitamin With Minerals Tab PO SCH (08:54)
--- NOTE | 2017-05-31 18:27 | CP.PCM.PN ---
Subjective - Date & Time of Evaluation Date of Evaluation: 05/31/17 Time of Evaluation: 18:26 - Subjective Subjective: Patient seen in room denies pain feels stronger, but still limited ambulating with min/mod A continue current care team conf tomorrow Objective - Vital Signs/Intake and Output Vital Signs (last 24 hours): Temp Pulse Resp BP Pulse Ox 97.5 F L 67 18 151/69 H 98 05/30/17 20:00 05/31/17 13:06 05/31/17 09:38 05/31/17 13:06 05/31/17 09:38 - Medications Medications: Current Medications Acetaminophen (Tylenol 325mg Tab) 650 mg PO Q6 PRN PRN Reason: PAIN 4-10 Albuterol (Ventolin Hfa 90 Mcg/Actuation (8 G)) 1 puff IH Q4 PRN PRN Reason: Wheezing Amlodipine Besylate (Norvasc) 5 mg PO DAILY [facility] Last Admin: 05/31/17 08:55 Dose: 5 mg Aspirin (Aspirin Chewable) 81 mg PO DAILY [facility] Last Admin: 05/31/17 08:52 Dose: 81 mg Atorvastatin Calcium (Lipitor) 80 mg PO HS [facility] Last Admin: 05/30/17 21:37 Dose: 80 mg Clonidine HCl (Catapres) 0.2 mg PO HS [facility] Last Admin: 05/30/17 21:38 Dose: 0.2 mg Divalproex Sodium (Depakote Er(Once Daily)) 500 mg PO Q12 [facility] Last Admin: 05/31/17 08:48 Dose: 500 mg Donepezil HCl (Aricept) 5 mg PO HS [facility] Last Admin: 05/30/17 21:38 Dose: 5 mg Enoxaparin Sodium (Lovenox) 40 mg SC DAILY [facility] PRN Reason: Protocol Last Admin: 05/31/17 08:48 Dose: 40 mg Fluticasone Propionate (Flonase) 1 spr PRITESH DAILY [facility] Last Admin: 05/31/17 08:49 Dose: 1 spr Furosemide (Lasix) 20 mg PO DAILY [facility] Last Admin: 05/31/17 08:53 Dose: 20 mg Gabapentin (Neurontin) 200 mg PO Q6 [facility] Last Admin: 05/31/17 17:29 Dose: 200 mg Hydralazine HCl (Apresoline) 75 mg PO Q8 [facility] Last Admin: 05/31/17 13:06 Dose: 75 mg Insulin Detemir (Levemir) 10 units SC [facility] Last Admin: 05/30/17 21:37 Dose: 10 units Insulin Human Lispro (Humalog) 0 units SC [facility] PRN Reason: Protocol Last Admin: 05/31/17 17:00 Dose: Not Given Levothyroxine Sodium (Synthroid) 88 mcg PO DAILY@0630 [facility] Last Admin: 05/31/17 05:37 Dose: 88 mcg Losartan Potassium (Cozaar) 100 mg PO DAILY [facility] Last Admin: 05/31/17 08:55 Dose: 100 mg Metformin HCl (Glucophage) 1,000 mg PO BID [facility] Last Admin: 05/31/17 16:50 Dose: 1,000 mg Modafinil (Provigil) 100 mg PO DAILY [facility] Last Admin: 05/31/17 08:59 Dose: Not Given Multivitamins/Minerals (Therapeutic-M Tab) 1 tab PO DAILY [facility] Last Admin: 05/31/17 08:54 Dose: 1 tab Pantoprazole Sodium (Protonix Ec Tab) 40 mg PO 0630 [facility] Last Admin: 05/31/17 05:37 Dose: 40 mg Senna/Docusate Sodium (Senokot S 50 Mg-8.6 Mg) 1 tab PO BID [facility] Last Admin: 05/31/17 16:51 Dose: 1 tab Simethicone (Mylicon Chew Tab) 80 mg PO [facility] Last Admin: 05/30/17 21:38 Dose: 80 mg Simethicone (Mylicon Chew Tab) 80 mg PO [facility] Last Admin: 05/31/17 17:29 Dose: 80 mg Sitagliptin Phosphate (Januvia) 50 mg PO BID [facility] Last Admin: 05/31/17 16:53 Dose: 50 mg Topiramate (Topamax) 50 mg PO Q12 [facility] Last Admin: 05/31/17 08:51 Dose: 50 mg - Labs Labs: 05/31/17 06:15 05/31/17 06:15
[2017-05-31] MEDS: Insulin Detemir 100 Units/ml Inj SC SCH (21:19)
[2017-05-31] MEDS ORDERED: Simethicone 80 mg Chewtab PO PRN (22:39)
[2017-06-01] MEDS: Levothyroxine 88 MCG TAB PO SCH (05:40)
[2017-06-01] MEDS: Pantoprazole 40 mg EC Tab PO SCH (05:40)
--- NOTE | 2017-06-01 05:48 | PN ---
DATE: SUBJECTIVE: The patient is alert and awake. Denied any shortness of breath. No chest pain. No palpitations. difficulty to stand and to walk. Denied any dizziness. PHYSICAL EXAMINATION: VITAL SIGNS: The patient has a blood pressure of 159/69, now it is 132/60 and pulse is 60. NECK: Supple. No JVD. LUNGS: Clear. HEART: Regular rate and rhythm. ABDOMEN: Soft and nontender. No palpable mass. EXTREMITIES: There is no edema. NEUROLOGIC: Unsteady gait. LABORATORY DATA: We have blood test done; WBC 3.9, hemoglobin 11.8, hematocrit 37.3, and platelet is 176. Chemistries showed sodium is 146, potassium 3.9, chloride 106, bicarbonate is 24, BUN 16, and creatinine is 0.7. PLAN: To continue physical therapy. Dr. Higuera's note appreciated. Conference regarding the progress of the patient will be done in the morning. Mehrdad Aleman MD
[2017-06-01] MEDS: Insulin Lispro (humaLOG) 100 Units/ml Inj SC SCH ×2 (06:31→16:27)
[2017-06-01] MEDS: Divalproex 500 mg ER (ONCE DAILY formulation) PO SCH ×2 (08:08→21:32)
[2017-06-01] MEDS: Simethicone 80 mg Chewtab PO PRN (08:08)
[2017-06-01] MEDS: Enoxaparin 40 mg Syringe SC SCH (08:08)
[2017-06-01] MEDS: Docusate-Senna 50 mg-8.6 mg Tab PO SCH ×2 (08:11→16:29)
[2017-06-01] MEDS: Multivitamin With Minerals Tab PO SCH (08:13)
--- NOTE | 2017-06-01 08:58 | PN ---
DATE: SUBJECTIVE: Today, the patient is more alert and awake; and denies any shortness of breath. No chest pain and complaining of some numbness in the right side of the face, and deny any palpitation, but the patient admit to having some difficulty standing. PHYSICAL EXAMINATION: VITAL SIGNS: The patient has blood pressure of 172/51, pulse is 64. NECK: Supple. No JVD. FACE: There is a slight drooling of the left side of the face. LUNGS: Clear. HEART: Regular rate and rhythm. No positive murmur. ABDOMEN: Soft. Positive bowel sounds. EXTREMITIES: No edema, but there is weakness of the right lower extremity. PLAN: We are going to increase the medications for the blood pressure, and thus we are going to introduce hydralazine. The hydralazine was given as 50 mg every 8 hours, but we are going to give now 75 mg p.o. every 8 hours, and we are going to continue physical and occupational therapy. Mehrdad Aleman MD
--- NOTE | 2017-06-01 09:00 | PN ---
DATE: SUBJECTIVE: The patient is alert and awake and oriented, but the patient is somewhat slow to answer the questions or to follow command, some times. The patient denied any headache, and however the patient is complaining only of some weakness on the right side of the face. PHYSICAL EXAMINATION: VITAL SIGNS: Blood pressure 137/80, pulse rate 60. HEENT: There is slight weakness to the left side of the face. LUNGS: Clear. HEART: Regular rate and rhythm. ABDOMEN: Soft, nontender. EXTREMITIES: There is no edema. NEURO: The patient has unsteady gait and increased tendency to fall. PLAN: The plan is that the patient needs physical therapy and continue current treatment. Mehrdad Aleman MD
--- NOTE | 2017-06-01 13:14 | PSY.TMCNF ---
Nursing - Vital Signs Vital Signs (Last 8 hours): Vital Signs 06/01/17 06/01/17 06/01/17 05:42 07:39 08:09 Temperature 96.4 F L Pulse Rate 60 51 L Respiratory 18 Rate Blood Pressure 145/60 150/55 L 122/70 O2 Sat by Pulse 98 Oximetry 06/01/17 06/01/17 06/01/17 08:10 09:00 09:44 Temperature Pulse Rate 77 77 64 Respiratory Rate Blood Pressure 122/70 128/77 O2 Sat by Pulse 99 Oximetry Pain: 0 - Precautions: Precautions: Fall Prevention, Cardiac/Pulmonary - Medications/Other Issues Comment: Pt at moderate nutritional risk. goals: 1. Pt to consume 75-100% of meals. 2. Blood glucoses to be between 70-180 mg/dl. Follow-up due on 2017 - Consults Comment: Dr. Higuera - Skin Incision Site: Right upper chest Dressing Status: Clean, Dry, Intact Incision: Healing Well, No Odor Incision Line Treatment: loop recorder insertion site d/i - Toileting Toileting: Dependent - Bladder Management Bladder Pattern: Normal, Incontinent Voiding Method: Toilet, Bedpan - Bowel Management Bowel Pattern: Normal Bowel Management: Maximal Assistance Frequency of Accidents: x1 - Transfers Transfers: Dependent - ADL's ADL's: Dependent - Patient/Family Teaching Comments: Care post CVA and safety precutions - Goals/Time Frame Comments: Pt was seen following PT session and agreeable to evaluation visit. Pt reported that she can speak/understand [place] when responding to questions. Pt reported that she enjoys walking in community, reading books that are in creole, and completing tasks. Pt reported she does not cook at her place of residence. Pt participated in modified delgado card task and required min verbal cues for visual scanning, number recognition, and color recognition. Pt participated in two rounds of task and returned to nursing station at end of session. Pt was educated on the benefits and purpose of participating in recreation therapy sessions. - Provider Provider: Radha MENDOZAN RN CRRN Physical Therapy - Bed Mobility Bed Mobility: Verbal Cues, Minimal Assistance - Transfers Wheelchair to Mat: Verbal Cues, Minimal Assistance, Moderate Assistance Sit to Stand: Verbal Cues, Contact Guard, Minimal Assistance Comment: RW - Ambulation Level of Assistance: Verbal Cues, Minimal Assistance Distance (ft.): 100 Assistive Devices: Rolling Walker - Stair Negotiation Stairs: Level of Assistance: Moderate Assistance Number of Stairs: 2 Stairs: Assistive Devices: Left Handrail, Right Handrail Comment: 2 6inch steps with B rails with min A on ascent and mod A on descent; requires constant tactile cues for sequencing on stair negotiation to use correct pattern - Standing Balance Static Stand: Minimal Assistance Dynamic Stand: Minimal Assistance, Moderate Assistance - Pain Pain (assessed during therapy session): 0 Comment: denies pain - Insight/Carryover Insight/Carryover: Fair - Patient/Family Education Comment: safety, therapy schedule, therapy goals, mobility, use of call bowling, use of DME, stroke recovery, attention to left side - Assessment/Plan Assessment: Pt is agreeable to participate in 1:1 and group recreation therapy sessions. Pt presents with L side visual inattention and continues to present with impaired cognitive deficits that affect pt's direction following and command following. Pt requires mod verbal cues throughout all leisure tasks for command following, error recognition, visual awareness to the L side, and for direction following. Pt will continue to benefit from participating in recreation therapy sessions to improve L side visual awareness and direction following. - Goals Timeframe: 7 days Goals: 2-6 in steps 2 HR, step to pattern min A. 100 feet with RW with min A. all transfers with CG with RW. bed/mat mobility with CG - Provider Therapist: Luh Wall PT DPT License Number: [id number] Occupational Therapy - Arousal/Attention/Orientation Patient Orientation: Person, Place, Time - ADL/IADL Self Feeding: Verbal Cues, Set-up Help Grooming: Supervision, Verbal Cues Dressing-Upper Extremity: Moderate Assistance Dressing-Lower Extremity: Moderate Assistance - Sitting Balance Static Sitting: Supervision Dynamic Sitting: Requires supervision, Contact Guard Assist - Transfers Wheelchair to Bed Transfers: Contact Guard, Minimal Assistance Toilet Transfers: Minimal Assistance Tub Transfers: Not Applicable - Wheelchair Management Level of Assistance: Moderate Assistance, Maximum Assistance - Upper Extremity Status Right Upper Extremity Comment: ROM: WFLs. Strength: 4/5 Left Upper Extremity Comment: ROM: WFL. Strength: 3+/5. Moderate Left side and body inattention for which VCs are required to attend at this time. - Pain Pain (assessed during therapy session): 0 Comment: denies pain - Insight/Carryover Insight/Carryover: Fair - Patient/Family Education Comment: safety, therapy schedule, therapy goals, mobility, use of call bowling, use of DME, stroke recovery, attention to left side - Assessment/Plan Assessment: Pt is agreeable to participate in 1:1 and group recreation therapy sessions. Pt presents with L side visual inattention and continues to present with impaired cognitive deficits that affect pt's direction following and command following. Pt requires mod verbal cues throughout all leisure tasks for command following, error recognition, visual awareness to the L side, and for direction following. Pt will continue to benefit from participating in recreation therapy sessions to improve L side visual awareness and direction following. - Goals Timeframe: 7 days Goals: 2-6 in steps 2 HR, step to pattern min A. 100 feet with RW with min A. all transfers with CG with RW. bed/mat mobility with CG - Provider Therapist: SEAN Bailey/Saul Speech Therapy - Consult Information Patient on Program: Yes Medical Diagnosis: CVA Treatment Diagnosis: MILD ORAL DYSPHAGIA. MILD COGNITIVE-LINGUISTIC DEFICITS - Assessment Problem Solving Impairment: Mild Memory Impairment: Mild Dysphagia/Swallowing Impairment: Mild - Plan Assessment: Pt is agreeable to participate in 1:1 and group recreation therapy sessions. Pt presents with L side visual inattention and continues to present with impaired cognitive deficits that affect pt's direction following and command following. Pt requires mod verbal cues throughout all leisure tasks for command following, error recognition, visual awareness to the L side, and for direction following. Pt will continue to benefit from participating in recreation therapy sessions to improve L side visual awareness and direction following. - Provider Therapist: Bridget Burnette License Number: [id number] Recreational Therapy - Participation Participation: Participates in Individual and/or Group Sessions - Attendance Attendance: 3-5 times per week - Activities Leisure Activities: Cards and Games - Socialization Level of Socialization: Initiates/interacts freely with care givers and peer - Assessment Assessment/Plan: Pt is agreeable to participate in 1:1 and group recreation therapy sessions. Pt presents with L side visual inattention and continues to present with impaired cognitive deficits that affect pt's direction following and command following. Pt requires mod verbal cues throughout all leisure tasks for command following, error recognition, visual awareness to the L side, and for direction following. Pt will continue to benefit from participating in recreation therapy sessions to improve L side visual awareness and direction following. Problems Currently Limiting Participation: decrease command following, impulsive , decrease carryover of directions, decrease leisure awareness level, L side weakness, L side visual inattention Goals and Time Frame: Pt will be encouraged to participate in 1:1 and group recreation therapy sessions 3-5x week to improve command following, direction following, attention to task, visual awareness to the L side, arousal level, and carryover of task rules. - Provider Therapist: Fatou Lara, RESTORATION OFFICER #[id number] Nutrition - Current Diet Current Diet/ Supplement/ Feedings: Moderate consistent CHO 2 gram Na low fat/ low cholesterol diet - Appetite Percent Meal Consumed: 75-100% - Comments Comments: Care post CVA and safety precutions - Assessment/Goals/Time Frame Assessment/Goals/Time Frame: Pt at moderate nutritional risk. goals: 1. Pt to consume 75-100% of meals. 2. Blood glucoses to be between 70-180 mg/dl. Follow-up due on 05/31/2017 - Provider Provider: Sheree Tellez RD Case Management - Psychosocial Assessment Support Systems: Jud Cordon [phone]. Susanne [facility] [phone] Psychological Interventions/Needs: Patient is alert with intermittent confusion and forgetfulness. Discharge Concerns: Patient with 3 flights of stairs to negotiate at home with limited support for assistance Patient/Family Meeting: CM met with patient and rehab team utilizing In-demand voice passenger vessel chef #[id number] Intervention/Goal/Outcome:: 1. Plan: SANDRO dependent on progress as patient is currently requiring mod-max A for functional mobility and with 3 flights to negotiate at home and with limited support. 2. Tentative discharge date: 2017 - Discharge Plan Discharge Plan: Subacute care - Provider Provider: OTIS Brock, ELECTRICIAN CONSTRUCTOR SUPERVISOR License Number: [id number] Rehabilitation Plan - Treatment Plan Treatment Plan: Physical Therapy, Occupational Therapy, Speech, Dietary, Patient /Family Education - Discharge Plan Estimated Date of Discharge: 06/10/17 Discharge to: Subacute
--- NOTE | 2017-06-01 13:38 | CP.PCM.PN ---
Subjective - Date & Time of Evaluation Date of Evaluation: 06/01/17 Time of Evaluation: 13:37 - Subjective Subjective: Patient seen in the room with translation provided doing well denies pain improved function Andreecalebflorentin has been a big aid in her attention this week continue current care KAELYN 06/10/17 Objective - Vital Signs/Intake and Output Vital Signs (last 24 hours): Temp Pulse Resp BP Pulse Ox 96.4 F L 64 18 128/77 99 06/01/17 07:39 06/01/17 09:44 06/01/17 07:39 06/01/17 09:00 06/01/17 09:44 - Medications Medications: Current Medications Acetaminophen (Tylenol 325mg Tab) 650 mg PO Q6 PRN PRN Reason: PAIN 4-10 Albuterol (Ventolin Hfa 90 Mcg/Actuation (8 G)) 1 puff IH Q4 PRN PRN Reason: Wheezing Amlodipine Besylate (Norvasc) 5 mg PO DAILY [facility] Last Admin: 06/01/17 08:10 Dose: 5 mg Aspirin (Aspirin Chewable) 81 mg PO DAILY [facility] Last Admin: 06/01/17 08:13 Dose: 81 mg Atorvastatin Calcium (Lipitor) 80 mg PO HS [facility] Last Admin: 05/31/17 21:19 Dose: 80 mg Clonidine HCl (Catapres) 0.2 mg PO HS [facility] Last Admin: 05/31/17 21:21 Dose: 0.2 mg Divalproex Sodium (Depakote Er(Once Daily)) 500 mg PO Q12 [facility] Last Admin: 06/01/17 08:08 Dose: 500 mg Donepezil HCl (Aricept) 5 mg PO HS [facility] Last Admin: 05/31/17 21:19 Dose: 5 mg Enoxaparin Sodium (Lovenox) 40 mg SC DAILY [facility] PRN Reason: Protocol Last Admin: 06/01/17 08:08 Dose: 40 mg Fluticasone Propionate (Flonase) 1 spr PRITESH DAILY [facility] Last Admin: 06/01/17 08:10 Dose: 1 spr Furosemide (Lasix) 20 mg PO DAILY [facility] Last Admin: 06/01/17 08:09 Dose: 20 mg Gabapentin (Neurontin) 200 mg PO Q6 [facility] Last Admin: 06/01/17 12:28 Dose: 200 mg Hydralazine HCl (Apresoline) 75 mg PO Q8 [facility] Last Admin: 06/01/17 05:42 Dose: 75 mg Insulin Detemir (Levemir) 10 units SC HS [facility] Last Admin: 05/31/17 21:19 Dose: 10 units Insulin Human Lispro (Humalog) 0 units SC ACBD [facility] PRN Reason: Protocol Last Admin: 06/01/17 06:31 Dose: Not Given Levothyroxine Sodium (Synthroid) 88 mcg PO DAILY@0630 [facility] Last Admin: 06/01/17 05:40 Dose: 88 mcg Losartan Potassium (Cozaar) 100 mg PO DAILY [facility] Last Admin: 06/01/17 08:10 Dose: 100 mg Metformin HCl (Glucophage) 1,000 mg PO BID [facility] Last Admin: 06/01/17 08:09 Dose: 1,000 mg Modafinil (Provigil) 100 mg PO DAILY [facility] Last Admin: 06/01/17 08:15 Dose: 100 mg Multivitamins/Minerals (Therapeutic-M Tab) 1 tab PO DAILY [facility] Last Admin: 06/01/17 08:13 Dose: 1 tab Pantoprazole Sodium (Protonix Ec Tab) 40 mg PO 0630 [facility] Last Admin: 06/01/17 05:40 Dose: 40 mg Senna/Docusate Sodium (Senokot S 50 Mg-8.6 Mg) 1 tab PO BID [facility] Last Admin: 06/01/17 08:11 Dose: 1 tab Simethicone (Mylicon Chew Tab) 80 mg PO PC PRN PRN Reason: Heartburn Last Admin: 06/01/17 08:08 Dose: 80 mg Simethicone (Mylicon Chew Tab) 80 mg PO HS PRN PRN Reason: Heartburn Sitagliptin Phosphate (Januvia) 50 mg PO BID [facility] Last Admin: 06/01/17 08:09 Dose: 50 mg Topiramate (Topamax) 50 mg PO Q12 [facility] Last Admin: 06/01/17 08:09 Dose: 50 mg - Labs Labs: 05/31/17 06:15 05/31/17 06:15
[2017-06-01] MEDS: Insulin Detemir 100 Units/ml Inj SC SCH (21:52)
[2017-06-02] MEDS: Levothyroxine 88 MCG TAB PO SCH (06:38)
[2017-06-02] MEDS: Pantoprazole 40 mg EC Tab PO SCH (06:38)
[2017-06-02] MEDS: Insulin Lispro (humaLOG) 100 Units/ml Inj SC SCH ×2 (07:50→17:30)
[2017-06-02] MEDS: Multivitamin With Minerals Tab PO SCH (08:48)
[2017-06-02] MEDS: Docusate-Senna 50 mg-8.6 mg Tab PO SCH ×2 (08:48→17:27)
[2017-06-02] MEDS: Divalproex 500 mg ER (ONCE DAILY formulation) PO SCH ×2 (08:50→21:32)
[2017-06-02] MEDS: Enoxaparin 40 mg Syringe SC SCH (08:50)
--- NOTE | 2017-06-02 10:09 | PN ---
DATE: SUBJECTIVE: Today, the patient is seen in the room in a sitting position and feels comfortable, but however complaining of some weakness in the left lower extremity and also the patient is complaining of numbness to the right side of the face with some pain also to the area. The patient denied any abdominal pain. No constipation. No nausea or vomiting. No chest pain. PHYSICAL EXAMINATION: VITAL SIGNS: The patient has a blood pressure of 144/69, pulse is 78, and respirations are 18. HEENT: Face has some slight drooling of the right side of the face. NECK: Supple. LUNGS: Clear. HEART: Regular rate and rhythm. Positive murmur. ABDOMEN: Soft, mildly obese, and nontender. No palpable mass. EXTREMITIES: There is no edema. NEUROLOGIC: There is some difficulty to stand and to lift the left leg for 90 degrees and there is unsteady gait. PLAN: As mentioned continue the physical therapy and continue the Provigil to maintain the patient more awake. was done on the same day and agreed with plan. Mehrdad Aleman MD
[2017-06-02] MEDS: Insulin Detemir 100 Units/ml Inj SC SCH (22:33)
[2017-06-03] MEDS: Levothyroxine 88 MCG TAB PO SCH (06:18)
[2017-06-03] MEDS: Pantoprazole 40 mg EC Tab PO SCH (06:18)
[2017-06-03] MEDS: Insulin Lispro (humaLOG) 100 Units/ml Inj SC SCH ×3 (06:30→21:38)
[2017-06-03 07:09] LABS: MEAN CELL VOLUME 88.5 fl (81.0-99.0); MEAN CORPUSCULAR HEMOGLOBIN 28.4 pg (27.0-31.0); MEAN CORPUSCULAR HGB CONC 32.1 g/dL (33.0-37.0); RBC 4.24 Mil/uL (3.80-5.20); RED CELL DISTRIBUTION WIDTH 13.7 % (11.5-14.5); WHITE BLOOD COUNT 3.9 K/uL (4.8-10.8)
[2017-06-03 07:42] LABS: BLOOD UREA NITROGEN 18 mg/dl (7-17); CALCIUM 9.4 mg/dL (8.4-10.2); GFR AFRICAN-AMERICAN > 60; GFR NON-AFRICAN AMERICAN > 60
[2017-06-03] MEDS: Divalproex 500 mg ER (ONCE DAILY formulation) PO SCH ×2 (08:18→21:09)
[2017-06-03] MEDS: Multivitamin With Minerals Tab PO SCH (08:18)
[2017-06-03] MEDS: Enoxaparin 40 mg Syringe SC SCH (08:22)
[2017-06-03] MEDS: Docusate-Senna 50 mg-8.6 mg Tab PO SCH (08:24)
[2017-06-03] MEDS ORDERED: Docusate-Senna 50 mg-8.6 mg Tab PO PRN (14:03)
[2017-06-03] MEDS: Simethicone 80 mg Chewtab PO PRN (21:35)
[2017-06-03] MEDS: Insulin Detemir 100 Units/ml Inj SC SCH (21:36)
[2017-06-03] MEDS ORDERED: Insulin Lispro (humaLOG) 100 Units/ml Inj SC SCH (22:00)
[2017-06-04] MEDS: Levothyroxine 88 MCG TAB PO SCH (05:54)
[2017-06-04] MEDS: Pantoprazole 40 mg EC Tab PO SCH (05:54)
[2017-06-04] MEDS: Insulin Lispro (humaLOG) 100 Units/ml Inj SC SCH ×2 (06:03→21:22)
--- NOTE | 2017-06-04 06:04 | PN ---
DATE: 06/03/2017 SUBJECTIVE: Today, the patient is alert and awake. Denies any shortness of breath. No chest pain. The patient is currently using the left leg more easily. PHYSICAL EXAMINATION: VITAL SIGNS: The patient has blood pressure of 132/52 and at 14 hours 152/57; pulse 59 and at 14 hours it was 71; respirations 19. HEENT: There is a very slight drooling at the right side of the face. NECK: Supple. LUNGS: Clear. HEART: Regular rate and rhythm. ABDOMEN: Soft. EXTREMITIES: There is no edema. There is some stepping on the left foot, but the strength is measured 3/5 to 4/5 instead of being 1 to 2 prior. The case was discussed with the physical therapist, and we are going to continue with physical therapy and occupational therapy until next week. Mehrdad Aleman MD
[2017-06-04] MEDS: Enoxaparin 40 mg Syringe SC SCH (08:40)
[2017-06-04] MEDS: Multivitamin With Minerals Tab PO SCH (08:42)
[2017-06-04] MEDS: Divalproex 500 mg ER (ONCE DAILY formulation) PO SCH ×2 (08:43→21:07)
--- NOTE | 2017-06-04 19:14 | CP.PCM.PN ---
Subjective - Date & Time of Evaluation Date of Evaluation: 06/04/17 Time of Evaluation: 19:13 - Subjective Subjective: Patient seen in room NAD continues to improve, ambulating >100' now with RW and CGA plan to go to [facility] on d/c continue current care Objective - Vital Signs/Intake and Output Vital Signs (last 24 hours): Temp Pulse Resp BP Pulse Ox 98.0 F 69 19 127/78 97 06/04/17 08:20 06/04/17 13:14 06/04/17 08:20 06/04/17 13:14 06/04/17 08:20 - Medications Medications: Current Medications Acetaminophen (Tylenol 325mg Tab) 650 mg PO Q6 PRN PRN Reason: PAIN 4-10 Albuterol (Ventolin Hfa 90 Mcg/Actuation (8 G)) 1 puff IH Q4 PRN PRN Reason: Wheezing Amlodipine Besylate (Norvasc) 5 mg PO DAILY [facility] Last Admin: 06/04/17 08:45 Dose: 5 mg Aspirin (Aspirin Chewable) 81 mg PO DAILY [facility] Last Admin: 06/04/17 08:43 Dose: 81 mg Atorvastatin Calcium (Lipitor) 80 mg PO HS [facility] Last Admin: 06/03/17 21:35 Dose: 80 mg Clonidine HCl (Catapres) 0.2 mg PO HS [facility] Last Admin: 06/03/17 21:37 Dose: 0.2 mg Divalproex Sodium (Depakote Er(Once Daily)) 500 mg PO Q12 [facility] Last Admin: 06/04/17 08:43 Dose: 500 mg Donepezil HCl (Aricept) 5 mg PO HS [facility] Last Admin: 06/03/17 21:37 Dose: 5 mg Enoxaparin Sodium (Lovenox) 40 mg SC DAILY [facility] PRN Reason: Protocol Last Admin: 06/04/17 08:40 Dose: 40 mg Fluticasone Propionate (Flonase) 1 spr PRITESH DAILY [facility] Last Admin: 06/04/17 08:39 Dose: 1 spr Furosemide (Lasix) 20 mg PO DAILY [facility] Last Admin: 06/04/17 08:44 Dose: 20 mg Gabapentin (Neurontin) 200 mg PO Q6 [facility] Last Admin: 06/04/17 17:07 Dose: 200 mg Hydralazine HCl (Apresoline) 75 mg PO Q8 [facility] Last Admin: 06/04/17 13:14 Dose: 75 mg Insulin Detemir (Levemir) 10 units SC HS [facility] Last Admin: 06/03/17 21:36 Dose: 10 units Insulin Human Lispro (Humalog) 0 units SC 0700,2100 [facility] PRN Reason: Protocol Last Admin: 06/04/17 06:03 Dose: Not Given Levothyroxine Sodium (Synthroid) 88 mcg PO DAILY@0630 [facility] Last Admin: 06/04/17 05:54 Dose: 88 mcg Losartan Potassium (Cozaar) 100 mg PO DAILY [facility] Last Admin: 06/04/17 08:41 Dose: 100 mg Metformin HCl (Glucophage) 1,000 mg PO BID [facility] Last Admin: 06/04/17 17:07 Dose: 1,000 mg Modafinil (Provigil) 100 mg PO DAILY [facility] Last Admin: 06/04/17 08:48 Dose: 100 mg Multivitamins/Minerals (Therapeutic-M Tab) 1 tab PO DAILY [facility] Last Admin: 06/04/17 08:42 Dose: 1 tab Pantoprazole Sodium (Protonix Ec Tab) 40 mg PO 0630 [facility] Last Admin: 06/04/17 05:54 Dose: 40 mg Senna/Docusate Sodium (Senokot S 50 Mg-8.6 Mg) 1 tab PO PRN PRN PRN Reason: Constipation Simethicone (Mylicon Chew Tab) 80 mg PO PC PRN PRN Reason: Heartburn Last Admin: 06/01/17 08:08 Dose: 80 mg Simethicone (Mylicon Chew Tab) 80 mg PO HS PRN PRN Reason: Heartburn Sitagliptin Phosphate (Januvia) 50 mg PO BID [facility] Last Admin: 06/04/17 17:08 Dose: 50 mg Topiramate (Topamax) 50 mg PO Q12 [facility] Last Admin: 06/04/17 08:41 Dose: 50 mg - Labs Labs: 06/03/17 06:50 06/03/17 06:50
[2017-06-04] MEDS: Insulin Detemir 100 Units/ml Inj SC SCH (21:20)
[2017-06-05] MEDS: Pantoprazole 40 mg EC Tab PO SCH (05:35)
[2017-06-05] MEDS: Levothyroxine 88 MCG TAB PO SCH (05:35)
[2017-06-05] MEDS: Insulin Lispro (humaLOG) 100 Units/ml Inj SC SCH ×2 (07:58→21:32)
[2017-06-05] MEDS: Divalproex 500 mg ER (ONCE DAILY formulation) PO SCH ×2 (08:26→20:19)
[2017-06-05] MEDS: Multivitamin With Minerals Tab PO SCH (08:28)
[2017-06-05] MEDS: Enoxaparin 40 mg Syringe SC SCH (08:31)
[2017-06-05] MEDS: Insulin Detemir 100 Units/ml Inj SC SCH (21:34)
[2017-06-06] MEDS: Pantoprazole 40 mg EC Tab PO SCH (06:37)
[2017-06-06] MEDS: Levothyroxine 88 MCG TAB PO SCH (06:37)
[2017-06-06] MEDS: Insulin Lispro (humaLOG) 100 Units/ml Inj SC SCH ×2 (06:45→21:26)
[2017-06-06 06:52] LABS: HEMOGLOBIN 11.7 g/dL (12.0-16.0); MEAN CORPUSCULAR HEMOGLOBIN 27.9 pg (27.0-31.0); MEAN CORPUSCULAR HGB CONC 31.7 g/dL (33.0-37.0); RBC 4.19 Mil/uL (3.80-5.20); RED CELL DISTRIBUTION WIDTH 13.6 % (11.5-14.5); WHITE BLOOD COUNT 4.4 K/uL (4.8-10.8)
[2017-06-06 07:05] LABS: BLOOD UREA NITROGEN 11 mg/dl (7-17); CALCIUM 9.5 mg/dL (8.4-10.2); GFR AFRICAN-AMERICAN > 60; GFR NON-AFRICAN AMERICAN > 60
[2017-06-06] MEDS: Multivitamin With Minerals Tab PO SCH (08:49)
[2017-06-06] MEDS: Divalproex 500 mg ER (ONCE DAILY formulation) PO SCH ×2 (08:49→20:33)
[2017-06-06] MEDS: Enoxaparin 40 mg Syringe SC SCH (08:51)
[2017-06-06] MEDS: Insulin Detemir 100 Units/ml Inj SC SCH (21:27)
[2017-06-07] MEDS: Levothyroxine 88 MCG TAB PO SCH (06:06)
[2017-06-07] MEDS: Pantoprazole 40 mg EC Tab PO SCH (06:07)
[2017-06-07] MEDS: Insulin Lispro (humaLOG) 100 Units/ml Inj SC SCH ×2 (06:11→21:33)
--- NOTE | 2017-06-07 06:48 | PN ---
DATE: 06/04/2017 SUBJECTIVE: Today, the patient is alert and awake. Denies any shortness of breath. No chest pain. No palpitations. The patient still has some slightly slurred speech. The patient denies any dizziness. PHYSICAL EXAMINATION: VITAL SIGNS: The patient has a blood pressure of 127/78, pulse 69, respirations 18. HEENT: Face, the patient has slight drooling on the right side of the face. NECK: Supple. LUNGS: Clear. CHEST: Right mastectomy. ABDOMEN: Soft and nontender. No palpable mass. EXTREMITIES: There is no edema. NEUROLOGIC: The patient has some slight difficulty to follow commands, mainly to the left side. The left leg has 4/5 strength. ASSESSMENT AND PLAN: The case was discussed with Occupational Therapy, and we are going to continue physical therapy and occupational therapy, and the patient subacute rehab. Mehrdad Aleman MD
--- NOTE | 2017-06-07 06:49 | PN ---
DATE: 06/05/2017 SUBJECTIVE: Today, the patient is alert and awake. The niece is at bedside. The patient was doing some exercise with legs by herself and lifting the leg. The patient did not have any chest pain or palpitations. No dizziness except having some numbness on the right side of the face. PHYSICAL EXAMINATION: VITAL SIGNS: The patient has blood pressure of 142/98, pulse 76. FACE: No apparent drooling noted at this time. NECK: Supple. LUNGS: Clear. HEART: Regular rate and rhythm. ABDOMEN: Soft. Nontender. No palpable mass. EXTREMITIES: There is no edema. NEURO: The patient's coordination is not totally perfect and there is unsteady gait. ASSESSMENT AND PLAN: In that case, the patient will continue physical therapy. The patient as recommended by the physical therapist the patient will need subacute rehab to the acute rehab from this facility. Mehrdad Aleman MD
--- NOTE | 2017-06-07 06:50 | CON ---
DATE: REASON FOR CONSULTATION: Respiratory failure. HISTORY OF PRESENT ILLNESS: The patient is a 57-year-old female, who is smoker, drinker, has history of depression who presented because of shortness of breath and wheezing, is here for respiratory failure, recurrent intubation, mechanical ventilation. The patient also received CPR in the emergency room. Subsequently, the patient was extubated, and she is experiencing short chest discomfort, especially while coughing. The patient, according to the daughter, may have been intubated once in the remote past. The patient has history of depression and was hospitalized in [facility] many years in the past. About 20 years ago, to the daughter, apparently, she overdosed on some of her depression medications. The patient denies any suicidal thoughts or ideation according to the patient's son and daughter who were at the bedside, and no known prior cardiac history. SOCIAL HISTORY: The patient is smoker and drinker, and she lives with her son. MEDICATIONS: Albuterol inhaler, Ativan 2 mg intravenously every 4 hours p.r.n., Dilaudid 1 mg intravenously every 4 hours p.r.n. for pain, Levaquin 750 mg intravenously daily, Lovenox 40 mg subcutaneous once a day, Zosyn 2.25 mg intravenously every 6 hours, potassium chloride intravenous infusion, and Solu-Medrol 40 mg intravenously every 8 hours. PHYSICAL EXAMINATION: GENERAL: The patient is a middle aged female, who does not appear to be in any acute distress. VITAL SIGNS: Blood pressure 93/60, heart rate 83, temperature 97.7, and respirations 16. HEENT: Head normocephalic. CHEST: Diffuse expiratory wheezing bilaterally. HEART: S1 and S2 regular. ABDOMEN: Soft. EXTREMITIES: No edema. LABORATORY DATA: Hemoglobin and hematocrit 13 and 39.7, white count 23.7, and platelet count 316,000. SMA-7, sodium 140, potassium 3.4, chloride 109, CO2 of 10, glucose 109, BUN 11, creatinine 1. Troponin is 0.355 and D-dimer is 15,008. PTT is 36.5. INR is 1.3. Influenza type A and B serologies negative. Cheat x-ray cardiomegaly, cannot rule out left pleural effusion. EKG revealed sinus rhythm at the rate of 94, nonspecific T-wave abnormality. ASSESSMENT: 1. Status post respiratory failure. 2. Diffused bronchospasm. 3. Rule out underlying troponin elevation. 4. Rule out rib fracture. RECOMMENDATIONS: Increase subcutaneous Lovenox to therapeutic regimen. Continue IV Solu-Medrol. Continue IV potassium replacement. Obtain chest CT scan with IV contrast. Obtain an echocardiogram. Obtain rib series. Ruben Camargo MD
[2017-06-07] MEDS: Multivitamin With Minerals Tab PO SCH (08:56)
[2017-06-07] MEDS: Enoxaparin 40 mg Syringe SC SCH (08:56)
[2017-06-07] MEDS: Divalproex 500 mg ER (ONCE DAILY formulation) PO SCH ×2 (08:56→21:34)
--- NOTE | 2017-06-07 18:01 | CP.PCM.PN ---
Subjective - Date & Time of Evaluation Date of Evaluation: 06/07/17 Time of Evaluation: 18:00 - Subjective Subjective: Patient seen in room doing well no pain left sided weakness improving continue current care Objective - Vital Signs/Intake and Output Vital Signs (last 24 hours): Temp Pulse Resp BP Pulse Ox 98.1 F 72 20 132/56 L 99 06/07/17 09:10 06/07/17 13:00 06/07/17 09:10 06/07/17 13:00 06/07/17 09:10 - Medications Medications: Current Medications Acetaminophen (Tylenol 325mg Tab) 650 mg PO Q6 PRN PRN Reason: PAIN 4-10 Albuterol (Ventolin Hfa 90 Mcg/Actuation (8 G)) 1 puff IH Q4 PRN PRN Reason: Wheezing Amlodipine Besylate (Norvasc) 5 mg PO DAILY [facility] Last Admin: 06/07/17 08:58 Dose: 5 mg Aspirin (Aspirin Chewable) 81 mg PO DAILY [facility] Last Admin: 06/07/17 08:59 Dose: 81 mg Atorvastatin Calcium (Lipitor) 80 mg PO HS [facility] Last Admin: 06/06/17 21:19 Dose: 80 mg Clonidine HCl (Catapres) 0.2 mg PO HS [facility] Last Admin: 06/06/17 21:20 Dose: 0.2 mg Divalproex Sodium (Depakote Er(Once Daily)) 500 mg PO Q12 [facility] Last Admin: 06/07/17 08:56 Dose: 500 mg Donepezil HCl (Aricept) 5 mg PO HS [facility] Last Admin: 06/06/17 21:20 Dose: 5 mg Fluticasone Propionate (Flonase) 1 spr PRITESH DAILY [facility] Last Admin: 06/07/17 08:55 Dose: 1 spr Furosemide (Lasix) 20 mg PO DAILY [facility] Last Admin: 06/07/17 08:57 Dose: 20 mg Gabapentin (Neurontin) 200 mg PO Q6 [facility] Last Admin: 06/07/17 17:15 Dose: 200 mg Hydralazine HCl (Apresoline) 75 mg PO Q8 [facility] Last Admin: 06/07/17 13:00 Dose: 75 mg Insulin Detemir (Levemir) 10 units SC HS [facility] Last Admin: 06/06/17 21:27 Dose: 10 units Insulin Human Lispro (Humalog) 0 units SC 0700,2100 [facility] PRN Reason: Protocol Last Admin: 06/07/17 06:11 Dose: Not Given Levothyroxine Sodium (Synthroid) 88 mcg PO DAILY@0630 [facility] Last Admin: 06/07/17 06:06 Dose: 88 mcg Losartan Potassium (Cozaar) 100 mg PO DAILY [facility] Last Admin: 06/07/17 08:57 Dose: 100 mg Metformin HCl (Glucophage) 1,000 mg PO BID [facility] Last Admin: 06/07/17 17:15 Dose: 1,000 mg Modafinil (Provigil) 100 mg PO DAILY [facility] Last Admin: 06/07/17 09:00 Dose: 100 mg Multivitamins/Minerals (Therapeutic-M Tab) 1 tab PO DAILY [facility] Last Admin: 06/07/17 08:56 Dose: 1 tab Pantoprazole Sodium (Protonix Ec Tab) 40 mg PO 0630 [facility] Last Admin: 06/07/17 06:07 Dose: 40 mg Senna/Docusate Sodium (Senokot S 50 Mg-8.6 Mg) 1 tab PO PRN PRN PRN Reason: Constipation Simethicone (Mylicon Chew Tab) 80 mg PO PC PRN PRN Reason: Heartburn Last Admin: 06/01/17 08:08 Dose: 80 mg Simethicone (Mylicon Chew Tab) 80 mg PO HS PRN PRN Reason: Heartburn Sitagliptin Phosphate (Januvia) 50 mg PO BID [facility] Last Admin: 06/07/17 17:15 Dose: 50 mg Topiramate (Topamax) 50 mg PO Q12 [facility] Last Admin: 06/07/17 08:56 Dose: 50 mg - Labs Labs: 06/06/17 06:30 06/06/17 06:30
[2017-06-07] MEDS: Insulin Detemir 100 Units/ml Inj SC SCH (21:43)
[2017-06-08] MEDS: Pantoprazole 40 mg EC Tab PO SCH (05:45)
[2017-06-08] MEDS: Levothyroxine 88 MCG TAB PO SCH (05:45)
[2017-06-08] MEDS: Insulin Lispro (humaLOG) 100 Units/ml Inj SC SCH ×2 (06:10→21:16)
[2017-06-08] MEDS: Multivitamin With Minerals Tab PO SCH (08:09)
[2017-06-08] MEDS: Simethicone 80 mg Chewtab PO PRN (08:15)
[2017-06-08] MEDS: Divalproex 500 mg ER (ONCE DAILY formulation) PO SCH ×2 (08:22→21:09)
[2017-06-08] MEDS: Enoxaparin 40 mg Syringe SC SCH (12:00)
--- NOTE | 2017-06-08 13:10 | PSY.TMCNF ---
Nursing - Vital Signs Vital Signs (Last 8 hours): Vital Signs 06/08/17 06/08/17 06/08/17 05:47 08:10 08:11 Temperature Pulse Rate 68 61 Respiratory Rate Blood Pressure 149/60 133/70 133/70 O2 Sat by Pulse Oximetry 06/08/17 06/08/17 08:14 09:14 Temperature 98.1 F Pulse Rate 61 61 Respiratory 20 Rate Blood Pressure 133/70 133/70 O2 Sat by Pulse 99 Oximetry Pain: 0 - Precautions: Precautions: Fall Prevention, Cardiac/Pulmonary - Medications/Other Issues Comment: Pt is at moderate nutritional risk. Goals-. 1. Pt to consume 75-100 % of meals (not met , continue). 2. Blood glucoses to be between 70-180 mg/dl (met, continue). Follow-up assessment to be done by 06/14/2017. - Consults Comment: Dr. Higuera - Skin Incision Site: Right upper chest Dressing Status: Clean, Dry, Intact Incision: Healing Well, No Odor Incision Line Treatment: loop recorder insertion site d/i - Toileting Toileting: Dependent - Bladder Management Bladder Pattern: Normal Voiding Method: Toilet, Bedpan - Bowel Management Bowel Pattern: Normal Bowel Management: Maximal Assistance Frequency of Accidents: x1 - Transfers Transfers: Dependent - ADL's ADL's: Dependent - Patient/Family Teaching Comments: Pt does not eat all of meals due to concerns about high blood sugar. - Goals/Time Frame Comments: Pt was seen following PT session and agreeable to evaluation visit. Pt reported that she can speak/understand Romanian when responding to questions. Pt reported that she enjoys walking in community, reading books that are in creole, and completing tasks. Pt reported she does not cook at her place of residence. Pt participated in modified delgado card task and required min verbal cues for visual scanning, number recognition, and color recognition. Pt participated in two rounds of task and returned to nursing station at end of session. Pt was educated on the benefits and purpose of participating in recreation therapy sessions. - Provider Provider: Radha MENDOZAN RN CRRN Physical Therapy - Bed Mobility Bed Mobility: Minimal Assistance - Transfers Wheelchair to Mat: Minimal Assistance Sit to Stand: Contact Guard - Ambulation Level of Assistance: Minimal Assistance Distance (ft.): 150 Assistive Devices: Rolling Walker - Stair Negotiation Stairs: Level of Assistance: Moderate Assistance Number of Stairs: 3 Handrails: Bilateral - Standing Balance Static Stand: Contact Guard Assist Dynamic Stand: Minimal Assistance - Pain Pain (assessed during therapy session): 0 - Insight/Carryover Insight/Carryover: Good - Patient/Family Education Comment: Pt education provided for increased safety awareness and proper techniques during functional mobility training. - Assessment/Plan Assessment: Pt actively participating in PT tx focusing on BLE strengthening exercises, balance and endurance activities, and functional mobility training. Pt currently requires min A for bed mobility, CGA/min A for transfers, min A for ambulation with RW, mod A for stair negotiation. - Goals Timeframe: 2 weeks Goals: Sit < > stand with RW and supervision. Sit < > supine with supervision. Pt will ambulate 150 ft with RW and supervision - Provider License Number: [id number] Occupational Therapy - Arousal/Attention/Orientation Patient Orientation: Person, Place - ADL/IADL Self Feeding: Verbal Cues, Set-up Help Grooming: Supervision, Verbal Cues Bathing-Upper Extremity: Set-up Help Bathing-Lower Extremity: Minimal Assistance Dressing-Upper Extremity: Minimal Assistance Dressing-Lower Extremity: Moderate Assistance - Sitting Balance Static Sitting: Supervision Dynamic Sitting: Requires supervision, Contact Guard Assist - Transfers Wheelchair to Bed Transfers: Contact Guard Toilet Transfers: Contact Guard, Minimal Assistance Tub Transfers: Minimal Assistance - Wheelchair Management Level of Assistance: Moderate Assistance, Maximum Assistance Distance (ft.): 100 - Upper Extremity Status Right Upper Extremity Comment: ROM: WFLs. Strength: 4/5 Left Upper Extremity Comment: ROM: WFL. Strength: 3+/5. Moderate Left side and body inattention for which VCs are required to attend at this time. - Pain Pain (assessed during therapy session): 0 - Insight/Carryover Insight/Carryover: Good - Patient/Family Education Comment: Pt education provided for increased safety awareness and proper techniques during functional mobility training. - Assessment/Plan Assessment: Pt actively participating in PT tx focusing on BLE strengthening exercises, balance and endurance activities, and functional mobility training. Pt currently requires min A for bed mobility, CGA/min A for transfers, min A for ambulation with RW, mod A for stair negotiation. - Goals Timeframe: 2 weeks Goals: Sit < > stand with RW and supervision. Sit < > supine with supervision. Pt will ambulate 150 ft with RW and supervision - Provider Therapist: SEAN Bailey/Saul Speech Therapy - Consult Information Patient on Program: Yes Medical Diagnosis: CVA Treatment Diagnosis: MILD COGNITIVE-LINGUISTIC DEFICITS - Assessment Problem Solving Impairment: Mild Memory Impairment: Mild - Plan Assessment: Pt actively participating in PT tx focusing on BLE strengthening exercises, balance and endurance activities, and functional mobility training. Pt currently requires min A for bed mobility, CGA/min A for transfers, min A for ambulation with RW, mod A for stair negotiation. - Provider Therapist: Bridget Burnette License Number: [id number] Recreational Therapy - Participation Participation: Participates in Individual and/or Group Sessions - Attendance Attendance: 3-5 times per week - Activities Leisure Activities: Cards and Games - Socialization Level of Socialization: Initiates/interacts freely with care givers and peer - Assessment Assessment/Plan: Pt actively participating in PT tx focusing on BLE strengthening exercises, balance and endurance activities, and functional mobility training. Pt currently requires min A for bed mobility, CGA/min A for transfers, min A for ambulation with RW, mod A for stair negotiation. - Provider Therapist: Fatou Lara, CONCRETE RUBBER #[id number] Nutrition - Current Diet Current Diet/ Supplement/ Feedings: Moderate consistent CHO, 2 gram Na, low fat/ low cholesterol diet - Appetite Percent Meal Consumed: 50-74% - Comments Comments: Pt does not eat all of meals due to concerns about high blood sugar. - Assessment/Goals/Time Frame Assessment/Goals/Time Frame: Pt is at moderate nutritional risk. Goals-. 1. Pt to consume 75-100% of meals (not met , continue). 2. Blood glucoses to be between 70-180 mg/dl (met, continue). Follow-up assessment to be done by 2017. - Provider Provider: Viviane Palencia MS, RD Case Management - Psychosocial Assessment Support Systems: Jud Cordon [phone]. Susanne Gonzalez [phone] Psychological Interventions/Needs: Patient is alert and oriented, Hatian Creole speaking with increased alertness Discharge Concerns: Patient with 3 flights of stairs to negotiate at [facility] with limited support for assistance Patient/Family Meeting: CM met with patient and rehab team utilizing In-demand voice supervisor drapery hanging #[phone] Intervention/Goal/Outcome:: 1. Plan: [facility] at [facility] per pt choice as Dr. Aleman and Dr. Higuera can follow pt; Attempted to call pt's niece with pt (pt used her own cell phone) however no response 2. Sent referral and awaiting response from [facility]. 3. Tentative discharge date: 06/10/2017 - Discharge Plan Discharge Plan: Subacute care - Provider Provider: OTIS Matute, INSURANCE AND FINANCIAL SERVICES AGENT License Number: [id number] Rehabilitation Plan - Treatment Plan Treatment Plan: Physical Therapy, Occupational Therapy, Speech, Dietary, Patient /Family Education - Discharge Plan Estimated Date of Discharge: 06/10/17 Discharge to: Subacute
--- NOTE | 2017-06-08 13:30 | CP.PCM.PN ---
Subjective - Date & Time of Evaluation Date of Evaluation: 06/08/17 Time of Evaluation: 13:29 - Subjective Subjective: Patient seen in room continues to improve denies sob/cp continues with left neglect set for d/c to [facility] 06/10/17 she is aware translation provided Objective - Vital Signs/Intake and Output Vital Signs (last 24 hours): Temp Pulse Resp BP Pulse Ox 98.1 F 61 20 133/70 99 06/08/17 09:14 06/08/17 09:14 06/08/17 09:14 06/08/17 09:14 06/08/17 09:14 - Medications Medications: Current Medications Acetaminophen (Tylenol 325mg Tab) 650 mg PO Q6 PRN PRN Reason: PAIN 4-10 Albuterol (Ventolin Hfa 90 Mcg/Actuation (8 G)) 1 puff IH Q4 PRN PRN Reason: Wheezing Amlodipine Besylate (Norvasc) 5 mg PO DAILY [facility] Last Admin: 06/08/17 08:10 Dose: 5 mg Aspirin (Aspirin Chewable) 81 mg PO DAILY [facility] Last Admin: 06/08/17 08:12 Dose: 81 mg Atorvastatin Calcium (Lipitor) 80 mg PO HS [facility] Last Admin: 06/07/17 21:43 Dose: 80 mg Clonidine HCl (Catapres) 0.2 mg PO HS [facility] Last Admin: 06/07/17 21:48 Dose: 0.2 mg Divalproex Sodium (Depakote Er(Once Daily)) 500 mg PO Q12 [facility] Last Admin: 06/08/17 08:22 Dose: 500 mg Donepezil HCl (Aricept) 5 mg PO HS [facility] Last Admin: 06/07/17 21:43 Dose: 5 mg Enoxaparin Sodium (Lovenox) 40 mg SC DAILY [facility] PRN Reason: Protocol Last Admin: 06/08/17 12:00 Dose: 40 mg Fluticasone Propionate (Flonase) 1 spr PRITESH DAILY [facility] Last Admin: 06/08/17 08:12 Dose: 1 spr Furosemide (Lasix) 20 mg PO DAILY [facility] Last Admin: 06/08/17 08:11 Dose: 20 mg Gabapentin (Neurontin) 200 mg PO Q6 [facility] Last Admin: 06/08/17 12:01 Dose: 200 mg Hydralazine HCl (Apresoline) 75 mg PO Q8 [facility] Last Admin: 06/08/17 05:47 Dose: 75 mg Insulin Detemir (Levemir) 10 units SC HS [facility] Last Admin: 06/07/17 21:43 Dose: 10 units Insulin Human Lispro (Humalog) 0 units SC 0700,2100 [facility] PRN Reason: Protocol Last Admin: 06/08/17 06:10 Dose: Not Given Levothyroxine Sodium (Synthroid) 88 mcg PO DAILY@0630 [facility] Last Admin: 06/08/17 05:45 Dose: 88 mcg Losartan Potassium (Cozaar) 100 mg PO DAILY [facility] Last Admin: 06/08/17 08:14 Dose: 100 mg Metformin HCl (Glucophage) 1,000 mg PO BID [facility] Last Admin: 06/08/17 08:15 Dose: 1,000 mg Modafinil (Provigil) 100 mg PO DAILY [facility] Last Admin: 06/08/17 08:21 Dose: 100 mg Multivitamins/Minerals (Therapeutic-M Tab) 1 tab PO DAILY [facility] Last Admin: 06/08/17 08:09 Dose: 1 tab Pantoprazole Sodium (Protonix Ec Tab) 40 mg PO 0630 [facility] Last Admin: 06/08/17 05:45 Dose: 40 mg Senna/Docusate Sodium (Senokot S 50 Mg-8.6 Mg) 1 tab PO PRN PRN PRN Reason: Constipation Simethicone (Mylicon Chew Tab) 80 mg PO PC PRN PRN Reason: Heartburn Last Admin: 06/08/17 08:15 Dose: 80 mg Simethicone (Mylicon Chew Tab) 80 mg PO HS PRN PRN Reason: Heartburn Sitagliptin Phosphate (Januvia) 50 mg PO BID [facility] Last Admin: 06/08/17 08:14 Dose: 50 mg Topiramate (Topamax) 50 mg PO Q12 [facility] Last Admin: 06/08/17 08:09 Dose: 50 mg - Labs Labs: 06/06/17 06:30 06/06/17 06:30
[2017-06-08] MEDS: Insulin Detemir 100 Units/ml Inj SC SCH (21:45)
[2017-06-09] MEDS: Insulin Lispro (humaLOG) 100 Units/ml Inj SC SCH ×2 (06:12→22:02)
[2017-06-09] MEDS: Pantoprazole 40 mg EC Tab PO SCH (06:13)
[2017-06-09] MEDS: Levothyroxine 88 MCG TAB PO SCH (06:13)
[2017-06-09 06:38] LABS: EOS # 0.2 K/uL (0.0-0.7); EOS % 5.3 % (0.0-4.0); HEMOGLOBIN 11.5 g/dL (12.0-16.0); LYMPH # 1.7 K/uL (1.0-4.3); LYMPH % 46.4 % (20.0-40.0); MEAN CELL VOLUME 87.8 fl (81.0-99.0); MEAN CORPUSCULAR HEMOGLOBIN 28.5 pg (27.0-31.0); MEAN CORPUSCULAR HGB CONC 32.5 g/dL (33.0-37.0); MEAN PLATELET VOLUME 9.6 fl (7.2-11.7); MONO # 0.5 K/uL (0.0-0.8); MONO % 12.4 % (0.0-10.0); NEUT # 1.3 K/uL (1.8-7.0); NEUT % 34.9 % (50.0-75.0); NRBC % 0.1 % (0.0-0.0); RBC 4.03 Mil/uL (3.80-5.20); RED CELL DISTRIBUTION WIDTH 13.7 % (11.5-14.5); WHITE BLOOD COUNT 3.7 K/uL (4.8-10.8)
[2017-06-09 06:57] LABS: LDL CHOLESTEROL 50 mg/dL (0-129)
[2017-06-09 07:33] LABS: ALB/GLOB RATIO 1.3 (1.0-2.1); ALBUMIN 3.2 g/dL (3.5-5.0); ALT/SGPT 38 U/L (9-52); AST/SGOT 19 U/L (14-36); BLOOD UREA NITROGEN 12 mg/dl (7-17); CALCIUM 9.6 mg/dL (8.4-10.2); GFR AFRICAN-AMERICAN > 60; GFR NON-AFRICAN AMERICAN > 60; HDL CHOLESTEROL 28 MG/DL (30-70)
[2017-06-09] MEDS: Multivitamin With Minerals Tab PO SCH (08:13)
[2017-06-09] MEDS: Enoxaparin 40 mg Syringe SC SCH (08:14)
[2017-06-09] MEDS: Divalproex 500 mg ER (ONCE DAILY formulation) PO SCH ×2 (08:16→20:15)
--- NOTE | 2017-06-09 08:33 | PN ---
DATE: SUBJECTIVE: Today, the patient is alert and awake, resting comfortably in the chair, did not have any chest pain or palpitations. No dizziness. The patient admitted using the left lower extremity more often and has a feeling that the left extremity is somewhat getting stronger. PHYSICAL EXAMINATION: VITAL SIGNS: Showed that the blood pressure is 113/58, pulse 61, respirations 20, temperature 97.7. HEENT: There are no apparent drooling at this point of the face. NECK: Supple. LUNGS: Clear. HEART: Regular rate and rhythm. ABDOMEN: Soft. Nontender. EXTREMITIES: There is no edema and the strength in the left lower extremity is 4/5. PLAN: We are going to continue the physical therapy. The case was discussed with the staff and the patient may be discharged to subacute rehabilitation in two days. Mehrdad Aleman MD
--- NOTE | 2017-06-09 19:29 | CP.PCM.PN ---
Subjective - Date & Time of Evaluation Date of Evaluation: 06/09/17 Time of Evaluation: 19:29 - Subjective Subjective: Patient seen in room comfortable ambulating 150' with min A good gains set for d/c to [facility] Objective - Vital Signs/Intake and Output Vital Signs (last 24 hours): Temp Pulse Resp BP Pulse Ox 98.0 F 68 22 129/61 96 06/09/17 08:34 06/09/17 13:34 06/09/17 08:34 06/09/17 13:34 06/09/17 08:34 - Medications Medications: Current Medications Acetaminophen (Tylenol 325mg Tab) 650 mg PO Q6 PRN PRN Reason: PAIN 4-10 Albuterol (Ventolin Hfa 90 Mcg/Actuation (8 G)) 1 puff IH Q4 PRN PRN Reason: Wheezing Amlodipine Besylate (Norvasc) 5 mg PO DAILY [facility] Last Admin: 06/09/17 08:16 Dose: 5 mg Aspirin (Aspirin Chewable) 81 mg PO DAILY [facility] Last Admin: 06/09/17 08:18 Dose: 81 mg Atorvastatin Calcium (Lipitor) 80 mg PO HS [facility] Last Admin: 06/08/17 21:45 Dose: 80 mg Clonidine HCl (Catapres) 0.2 mg PO HS [facility] Last Admin: 06/08/17 21:49 Dose: 0.2 mg Divalproex Sodium (Depakote Er(Once Daily)) 500 mg PO Q12 [facility] Last Admin: 06/09/17 08:16 Dose: 500 mg Donepezil HCl (Aricept) 5 mg PO HS [facility] Last Admin: 06/08/17 21:45 Dose: 5 mg Enoxaparin Sodium (Lovenox) 40 mg SC DAILY [facility] PRN Reason: Protocol Last Admin: 06/09/17 08:14 Dose: 40 mg Fluticasone Propionate (Flonase) 1 spr PRITESH DAILY [facility] Last Admin: 06/09/17 08:12 Dose: 1 spr Furosemide (Lasix) 20 mg PO DAILY [facility] Last Admin: 06/09/17 08:14 Dose: 20 mg Gabapentin (Neurontin) 200 mg PO Q6 [facility] Last Admin: 06/09/17 18:10 Dose: 200 mg Hydralazine HCl (Apresoline) 75 mg PO Q8 [facility] Last Admin: 06/09/17 13:34 Dose: 75 mg Insulin Detemir (Levemir) 10 units SC HS [facility] Last Admin: 06/08/17 21:45 Dose: 10 units Insulin Human Lispro (Humalog) 0 units SC 0700,2100 [facility] PRN Reason: Protocol Last Admin: 06/09/17 06:12 Dose: Not Given Levothyroxine Sodium (Synthroid) 88 mcg PO DAILY@0630 [facility] Last Admin: 06/09/17 06:13 Dose: 88 mcg Losartan Potassium (Cozaar) 100 mg PO DAILY [facility] Last Admin: 06/09/17 08:18 Dose: 100 mg Metformin HCl (Glucophage) 1,000 mg PO BID [facility] Last Admin: 06/09/17 16:56 Dose: 1,000 mg Modafinil (Provigil) 100 mg PO DAILY [facility] Last Admin: 06/09/17 08:21 Dose: 100 mg Multivitamins/Minerals (Therapeutic-M Tab) 1 tab PO DAILY [facility] Last Admin: 06/09/17 08:13 Dose: 1 tab Pantoprazole Sodium (Protonix Ec Tab) 40 mg PO 0630 [facility] Last Admin: 06/09/17 06:13 Dose: 40 mg Senna/Docusate Sodium (Senokot S 50 Mg-8.6 Mg) 1 tab PO PRN PRN PRN Reason: Constipation Simethicone (Mylicon Chew Tab) 80 mg PO PC PRN PRN Reason: Heartburn Last Admin: 06/08/17 08:15 Dose: 80 mg Simethicone (Mylicon Chew Tab) 80 mg PO HS PRN PRN Reason: Heartburn Sitagliptin Phosphate (Januvia) 50 mg PO BID [facility] Last Admin: 06/09/17 16:57 Dose: 50 mg Topiramate (Topamax) 50 mg PO Q12 [facility] Last Admin: 06/09/17 08:23 Dose: 50 mg - Labs Labs: 06/09/17 05:20 06/09/17 05:20
[2017-06-09] MEDS: Insulin Detemir 100 Units/ml Inj SC SCH (22:05)
[2017-06-10] MEDS: Levothyroxine 88 MCG TAB PO SCH (06:00)
[2017-06-10] MEDS: Pantoprazole 40 mg EC Tab PO SCH (06:00)
[2017-06-10] MEDS: Insulin Lispro (humaLOG) 100 Units/ml Inj SC SCH (06:20)
[2017-06-10] MEDS: Multivitamin With Minerals Tab PO SCH (08:31)
[2017-06-10] MEDS: Simethicone 80 mg Chewtab PO PRN (08:31)
[2017-06-10] MEDS: Enoxaparin 40 mg Syringe SC SCH (08:32)
[2017-06-10] MEDS: Divalproex 500 mg ER (ONCE DAILY formulation) PO SCH (08:33)
[2017-06-10 11:08] VITALS: BP 142/50; PULSE 60; RESP 22; TEMP 97.6; O2SAT 97
--- NOTE | 2017-06-11 07:37 | PN ---
DATE: SUBJECTIVE: The patient is today alert and awake. Denied any shortness of breath. No chest pain or palpitations. No constipation; however, the patient admitted having slight drooling at the right side of the face. PHYSICAL EXAMINATION: VITAL SIGNS: The patient has blood pressure of 142/50, pulse 60, respirations 22, temperature 97.6. HEENT: Head is normocephalic. Face, there is slight weakness in the right side of the face and tearing of the right eye. NECK: Supple. LUNGS: Clear. HEART: Regular rate and rhythm. ABDOMEN: Soft. CHEST: There is a right mastectomy. EXTREMITIES: There is no edema. No wound. There is weakness of the left lower extremity and unsteady gait. PLAN: The patient will be transferred to subacute today and we reviewed all the medications. The patient will go to [facility]. Mehrdad Aleman MD
== END 2017-06-10 13:20 | DRG 57 ==
PROVIDERS: ADMIT Specialist; ATTEND Specialist
PROC: F08Z1FZ Dressing Techniques Treatment using Assistive, Adaptive, Supportive or Protective Equipment (ICD-10-PCS; principal; 2017-05-22)
PROC: F08Z0FZ Bathing/Showering Techniques Treatment using Assistive, Adaptive, Supportive or Protective Equipment (ICD-10-PCS; 2017-05-22)
PROC: F07Z5FZ Bed Mobility Treatment using Assistive, Adaptive, Supportive or Protective Equipment (ICD-10-PCS; 2017-05-22)
PROC: F07Z8FZ Transfer Training Treatment using Assistive, Adaptive, Supportive or Protective Equipment (ICD-10-PCS; 2017-05-22)
PROC: F07Z9ZZ Gait Training/Functional Ambulation Treatment (ICD-10-PCS; 2017-05-22)
PROC: F06Z6ZZ Communicative/Cognitive Integration Skills Treatment (ICD-10-PCS; 2017-05-22)
DX: I69.354 Hemiplegia and hemiparesis following cerebral infarction affecting left non-dominant side (principal); R41.4 Neurologic neglect syndrome; I10 Essential (primary) hypertension; K59.00 Constipation, unspecified; E10.51 Type 1 diabetes mellitus with diabetic peripheral angiopathy without gangrene; E78.00 Pure hypercholesterolemia, unspecified; I69.398 Other sequelae of cerebral infarction; Z85.3 Personal history of malignant neoplasm of breast; Z90.11 Acquired absence of right breast and nipple; N63.0 Unspecified lump in unspecified breast; I69.328 Other speech and language deficits following cerebral infarction; R47.81 Slurred speech